=== PATIENT | female | born 1995 | race Caucasian/White ===

== ENCOUNTER 2023-11-12 20:28 | Emergency (ER) | payer BC, SELFPAY ==
[2023-11-12 20:44] VITALS: BP 151/84; PULSE 87; TEMP 36.8; O2SAT 99; BMI 27.4
--- NOTE | 2023-11-12 20:51 | XR_ITS ---
The [address] [address] Patient Name: OTY CHAIREZ MRN: [id number] date: 1995 Sex: F Assigned Patient Location: ER Current Patient Location: ER Accession/Order Number: [id number] Exam Date: 11/12/2023 21:35 Report Date: 11/12/2023 22:34 At the request of: VERÓNICA VELASCO Procedure: XR ankle LT min 3V XR ankle LT min 3V, 11/12/2023 9:35 PM EDT INDICATION: Twisted, pain COMPARISON: None. TECHNIQUE: 3 views of the left ankle FINDINGS: No acute fracture or dislocation. The ankle mortise is preserved. Soft tissue swelling seen about the ankle. No radiopaque foreign body. XR/XR ankle LT min 3V IMPRESSION: 1. No acute fracture or dislocation. Soft tissue swelling seen about the left ankle Electronically authenticated by: JEREMI BELL Date: 11/12/2023 22:34
--- NOTE | 2023-11-12 20:51 | XR_ITS ---
The [address] [address] Patient Name: TOY CHAIREZ MRN: [id number] date: 1995 Sex: F Assigned Patient Location: ER Current Patient Location: ED.MAIN Accession/Order Number: [id number] Exam Date: 11/12/2023 21:35 Report Date: 11/12/2023 22:27 At the request of: VERÓNICA VELASCO Procedure: XR foot LT min 3V EXAMINATION: XR foot LT min 3V, , 11/12/2023 9:35 PM EDT INDICATION: Twisted, pain HISTORY: Ordering Provider Reason for Exam: Twisted, pain Technologist Note: Additional: COMPARISON: None. TECHNIQUE: Left foot x-ray: 3 view(s). FINDINGS: No acute fracture. Joint alignment is anatomic. Joint spaces are preserved. Soft tissues are within normal limits. XR/XR foot LT min 3V IMPRESSION: No acute fracture or traumatic malalignment. Electronically authenticated by: JEREMI BELL Date: 11/12/2023 22:27
--- NOTE | 2023-11-12 20:52 | ED_ITS ---
HPI HPI - Extremity Injury (Lower) General Chief Complaint: Extremity Injury, Lower Stated Complaint: Lower Extremity Pain Time Seen by Provider: 11/12/23 20:45 Source: patient Mode of arrival: walk-in Limitations: no limitations History of Present Illness HPI Narrative: 28-year-old female presents to the emergency department for pain in her left foot and ankle area. She twisted it 3 days ago. It has been hurting and swollen since and she came in [facility] to get checked. It happened in [place] and she wanted to wait until she got home to have it looked at. No other injury was sustained and the pain is moderate. Related Data Home Medications ?Medication ?Instructions ?Recorded ?Confirmed No Known Home Medications 11/12/23 11/12/23 Allergies Allergy/AdvReac Type Severity Reaction Status Date / Time No Known Drug Allergies Allergy Verified 11/12/23 20:47 Opioid HPI Opioid Management Most Recent Pain and Opioid Data: No Data to Display Review of Systems ROS Narrative A ten point review of systems is negative except as noted above. Exam Narrative Exam Narrative: Nurses note and vital signs reviewed and patient is not hypoxic. General: The patient appears well and in no apparent distress. Skin: Warm, dry, no pallor noted. There is no rash noted. Head: Normocephalic, atraumatic Eye: Normal conjunctiva, no drainage Ears, Nose, Mouth, and Throat: oral mucosa is moist. Nares patent. Cardiovascular: Regular Rate and Rhythm Respiratory: Patient is in no distress, no accessory muscle use, lungs are clear to auscultation, no wheezing, rales or rhonchi Back: non-tender GI: Nontender Musculoskeletal: She has significant swelling in the left foot and ankle area. Skin intact. There is some bruising on the lateral aspect of her foot. Neurological: Awake and alert Psychiatric: Cooperative Constitutional Vital Signs, click to edit/add: Last Vital Signs Temp 98.3 F 11/12/23 20:44 Pulse 87 11/12/23 20:44 Resp 16 11/12/23 20:44 BP 151/84 H 11/12/23 20:44 Pulse Ox 99 11/12/23 20:44 O2 Del Method Room Air 11/12/23 20:44 Course Vital Signs Vital signs: Vital Signs Temperature 98.3 F 11/12/23 20:44 Pulse Rate 87 11/12/23 20:44 Respiratory Rate 16 11/12/23 20:44 Blood Pressure 151/84 H 11/12/23 20:44 Pulse Oximetry 99 11/12/23 20:44 Oxygen Delivery Method Room Air 11/12/23 20:44 Temperature 98.3 F 11/12/23 20:44 Pulse Rate 87 11/12/23 20:44 Respiratory Rate 16 11/12/23 20:44 Blood Pressure 151/84 H 11/12/23 20:44 Pulse Oximetry 99 11/12/23 20:44 Oxygen Delivery Method Room Air 11/12/23 20:44 MDM - Extremity Injury (Lower) MDM Narrative Medical decision making narrative: X-rays negative per radiologist. Deep wrap and air splint applied, application checked by me and found to be appropriate, she is neurovascular intact. She is placed on crutches and referred to Dr. Yung Saldana. Treatment diagnosis and follow-up were discussed with the patient. Differential Diagnosis Differential diagnosis: Likely ankle sprain and strain and ankle fracture Imaging Data Ankle x-ray: Radiologist's impression: ITS Impressions Ankle X-Ray 11/12/23 20:51 IMPRESSION: 1. No acute fracture or dislocation. Soft tissue swelling seen about the left ankle Electronically authenticated by: JEREMI BELL Date: 11/12/2023 22:34 Foot X-Ray 11/12/23 20:51 IMPRESSION: No acute fracture or traumatic malalignment. Electronically authenticated by: JEREMI BELL Date: 11/12/2023 22:27 Discharge Plan Discharge Stand Alone Forms: Portal Instructions Chief Complaint: Extremity Injury, Lower Clinical Impression: Left ankle sprain Patient Disposition: Home, Self-Care Time of Disposition Decision: 22:49 Condition: Good Mode of Transportation: Private Vehicle Prescriptions / Home Meds: No Action No Known Home Medications Print Language: Finnish Instructions: Ankle Sprain (ED), Crutch Instructions (ED), Ankle Stirrup Splint (ED) Additional Instructions: Follow-up with Dr. Palacios, call tomorrow Referrals: Efrain Muñoz DO [Primary Care Provider] - 1 week Roberto Palacios DPM [Physician] - 1 week
== END 2023-11-12 23:19 | disposition home or self-care (01) ==
PROVIDERS: Emergency Provider Emergency Medicine; PCP Internal Medicine
DX: S93.402A Sprain of unspecified ligament of left ankle, initial encounter (principal); X50.1XXA Overexertion from prolonged static or awkward postures, initial encounter
CPT/HCPCS: 73610; 73630; 99284

== ENCOUNTER 2023-11-13 12:46 | Emergency (ER) | payer BC, SELFPAY ==
[2023-11-13 12:51] VITALS: BP 122/85; PULSE 82; TEMP 36.8; O2SAT 98; BMI 27.2
--- NOTE | 2023-11-13 13:48 | US_ITS ---
The [place] [id number] Patient Name: TOY CHAIREZ MRN: [id number] date: 1995 Sex: F Assigned Patient Location: ER Current Patient Location: ER Accession/Order Number: [id number] Exam Date: 11/13/2023 13:50 Report Date: 11/13/2023 14:32 At the request of: MARINA CHEN Procedure: US venous doppler LE LT EXAM: US venous doppler LE LT HISTORY: leg swelling COMPARISON: None. TECHNIQUE: Grayscale, color and Doppler FINDINGS: Region: Left leg Thrombus: Echogenic thrombus identified in the small saphenous vein. No thrombus in the deep vein system Flow: Absent flow corresponding to thrombus Compressibility: Absent compressibility corresponding to thrombus Augmentation: Normal proximal augmentation US/US venous doppler LE LT IMPRESSION: No deep vein thrombus Occlusive thrombus in the superficial left small saphenous vein Electronically authenticated by: SERENITY BRENNER Date: 11/13/2023 14:32
--- NOTE | 2023-11-13 16:48 | ED_ITS ---
HPI HPI - General Adult General Chief complaint: Extremity Injury, Lower Stated complaint: LEFT ANKLE PAIN (SWELLING) COLDNESS Time Seen by Provider: 11/13/23 13:17 Source: patient Mode of arrival: walk-in History of Present Illness HPI narrative: 28-year-old female to the emergency department chief complaint of feeling a knot and some additional bruising in her leg. Recently diagnosed with an ankle sprain that was severe. She has follow-up with podiatry tomorrow. Today in the shower noted some increased bruising about the leg and a knot in her lower leg. She talked to a family member who is concerned about compartment syndrome. Related Data Home Medications ?Medication ?Instructions ?Recorded ?Confirmed drospirenone 3 mg-ethinyl 1 tab PO DAILY 11/13/23 11/13/23 estradiol 0.03 mg tablet escitalopram oxalate 20 mg tablet 20 mg PO DAILY 11/13/23 11/13/23 Allergies Allergy/AdvReac Type Severity Reaction Status Date / Time No Known Drug Allergies Allergy Verified 11/12/23 20:47 Opioid HPI Opioid Management Most Recent Opioid Data: Last Pain Scale 6 11/13/23 13:08 Review of Systems ROS Status of ROS 10 or more systems reviewed and unremark able except as noted in history and below Exam Narrative Exam Narrative: VITALS: I have reviewed the triage vital signs. GENERAL: Well developed, well appearing adult female in no acute distress. NEURO: Alert and oriented. Moves all extremities. Face is symmetric and expressive. EYES: PERRL. No scleral icterus or conjunctival injection. No discharge. HENT: Normocephalic, atraumatic. Hearing is grossly intact. Nares grossly patent and without discharge. Mucous membranes moist. NECK: No JVD. Patient moves neck without restriction. Left lower Extremity: DP and PT pulses intact. Limb is similar color and temperature to the contralateral limb. Compartments soft. No swelling. Ecchymosis about the ankle. Bilateral malleoli or tenderness. No tenderness at the base of the fifth metatarsal. No midfoot tenderness. No fibular head tenderness. Able to bear weight with arches maintained. Sensation is intact over the foot and lower leg. Dorsiflexion/plantar flexion, knee flexion/extension, hip flexion/extension are grossly intact by strength testing. SKIN: Warm and dry. Normal turgor. No rash or lesions appreciated. PSYCH: Mood, affect, and interaction is appropriate to the setting. Constitutional Vital Signs, click to edit/add: Last Vital Signs Temp 98.3 F 11/13/23 12:51 Pulse 82 11/13/23 12:51 Resp 18 11/13/23 12:51 BP 122/85 11/13/23 12:51 Pulse Ox 98 11/13/23 12:51 O2 Del Method Room Air 11/13/23 12:51 Course Vital Signs Vital signs: Vital Signs Temperature 98.3 F 11/13/23 12:51 Pulse Rate 82 11/13/23 12:51 Respiratory Rate 18 11/13/23 12:51 Blood Pressure 122/85 11/13/23 12:51 Pulse Oximetry 98 11/13/23 12:51 Oxygen Delivery Method Room Air 11/13/23 12:51 Temperature 98.3 F 11/13/23 12:51 Pulse Rate 82 11/13/23 12:51 Respiratory Rate 18 11/13/23 12:51 Blood Pressure 122/85 11/13/23 12:51 Pulse Oximetry 98 11/13/23 12:51 Oxygen Delivery Method Room Air 11/13/23 12:51 Medical Decision Making MDM Narrative Medical decision making narrative: 28-year-old female to the emergency department chief complaint of increased bruising, pain and a palpable knot in her calf. Vital stable, the patient is afebrile. Left lower extremity is neurovascularly intact. No evidence of compartment syndrome. Will order a duplex to evaluate for DVT given the painful knot. No DVT. Does have a superficial vein thrombosis of the small saphenous vein. Did discuss with the on-call vascular surgeon Dr. Reyes who will see the patient in office in a week for repeat evaluation. Does not recommend anticoagulation at this time. Discussed Deep wrap, warm compresses, NSAIDs. Follow-up with podiatry as scheduled for the ankle. Return precautions were discussed. All questions were answered. The patient was discharged home. Imaging Data Ultrasound duplex: Attestation: I have reviewed the pertinent imaging results. Radiologist's impression: ITS Impressions Venous Doppler Study 11/13/23 13:48 IMPRESSION: No deep vein thrombus Occlusive thrombus in the superficial left small saphenous vein Electronically authenticated by: SERENITY BRENNER Date: 11/13/2023 14:32 Discharge Plan Discharge Stand Alone Forms: Portal Instructions Chief Complaint: Extremity Injury, Lower Clinical Impression: Superficial vein thrombosis Patient Disposition: Home, Self-Care Time of Disposition Decision: 15:36 Condition: Good Prescriptions / Home Meds: No Action drospirenone-ethinyl estradiol 3-0.03 mg tablet 1 tab PO DAILY escitalopram oxalate 20 mg tablet 20 mg PO DAILY Print Language: [place]ese Instructions: Venous Thromboembolism (ED) Additional Instructions: Return to the emergency department increasing pain, increasing swelling, or other new or concerning symptoms Referrals: Efrain Muñoz DO [Primary Care Provider] - 1 week Unique Reyes MD [Physician] - 1 week Discharge Date/Time: 11/13/23 15:41
== END 2023-11-13 15:41 | disposition home or self-care (01) ==
PROVIDERS: Emergency Provider Student in an Organized Health Care Education/Training Program; PCP Internal Medicine
DX: I82.812 Embolism and thrombosis of superficial veins of left lower extremity (principal)
CPT/HCPCS: 93971; 99284

== ENCOUNTER 2023-11-14 08:00 | Outpatient (OUT) | payer BC, SELFPAY ==
--- NOTE | 2023-11-14 | XR_ITS ---
The [address] [address] Patient Name: TOY CHAIREZ MRN: [id number] date: 1995 Sex: F Assigned Patient Location: Current Patient Location: Accession/Order Number: [id number] Exam Date: 11/14/2023 09:50 Report Date: 11/14/2023 14:54 At the request of: MADHU LONGO Procedure: XR ankle LT min 3V PROCEDURE: XR ankle LT min 3V COMPARISON: 11/12/2023 HISTORY: LEFT ANKLE PAIN FINDINGS: BONES:No fracture, acute abnormality, or significant arthropathy. SOFT TISSUES:Moderate diffuse soft tissue swelling EFFUSION:Small ankle joint effusion OTHER: Negative. XR/XR ankle LT min 3V IMPRESSION: Soft tissue swelling, no acute fracture Electronically authenticated by: SERENITY BRENNER Date: 11/14/2023 14:54
== END 2023-11-14 08:01 | disposition home or self-care (01) ==
LOC: EC 08:01
PROVIDERS: PCP Internal Medicine; Visit Provider Podiatrist Foot & Ankle Surgery
DX: M25.572 Pain in left ankle and joints of left foot (principal); M25.472 Effusion, left ankle
CPT/HCPCS: 73610

== ENCOUNTER 2025-01-03 21:16 | Emergency (ER) | payer OTHER, SELFPAY ==
[2025-01-03 21:22] VITALS: BP 122/75; PULSE 89; TEMP 36.6; O2SAT 100; BMI 29.7
--- OUTSIDE RECORDS SUMMARY | 2025-01-03 21:24 | XMS_ITS | CCD ---
Author Organization [facility] Care Team Providers Care Rubber Tester Name Role Phone MIKAYLA SCALES Attending Unavailable SELF, SELF Referring Unavailable MIKAYLA SCALES Referring Unavailable No, Physician Primary Care Provider Unavailabl e NO, PHYSICIAN Primary Care Unavailable XIAO TRAN Attending Unavailabl e LUNA PETERSON Attending Unavailab le NO, PHYSICIAN Primary Care Unavailable Magen Mao MD Primary Care Provider CAYLA TUBBS Admitting Unava ilable NO, PHYSICIAN Primary Care Unavailable No, Physician Primary Care Provider Unavailabl e NO, PHYSICIAN Primary Care Unavailable AMBAR JACOBO Attending Unavailable NO, PHYSICIAN Primary Care Unavailable QUENTIN CAMP Attending Unavail able CAYLA TUBBS Admitting Unava ilable CAYLA TUBBS Attending Unava ilable NO, PHYSICIAN Primary Care Unavailable CAYLA TUBBS Admitting Unava ilable BIRJANEEHOLCAYLA Lebron Attending Unava ilable NO, PHYSICIAN Primary Care Unavailable CAYLA TUBBS Admitting Unava ilable NO, PHYSICIAN Primary Care Unavailable MARCE DUTTA Attending Unavailable Cayla Tubbs DO Primary Care Provider CAYLA TUBBS Referring Unavailab CAYLA Renteria Primary Care Unavailab CAYLA Renteria Referring Unavailab le CAYLA TUBBS Primary Care Unavailab SUDHIR Reagan Referring Unavailable CAYLA TUBBS Primary Care Unavailab SILVIA Mccauley Attending Unavailable Unavailable Primary Care Provider UnavailEfrain Padilla DO Primary Care Provider Efrain Muñoz DO Primary Care Provider [phone] Patricia Segura PA-C Attending Provider [phone] Fernie Rizzo DO Attending Provider [phone] PATRICIA SEGURA Attending Unavailable FERNIE RIZZO Attending Unavailable Patricia Segura Attending Unavailable Patricia Segura Admitting Unavailable [facility] Unavailable [facility] Unavailable Itrhina, Fernie Attending Unavailable Itzjude, Fernie Admitting Unavailable [facility] Unavailable Itzjude, Fernie Attending Unavailable Itrhina, Fernie Admitting Unavailable Allergies Allergy Classification Reported Allergen(s) Allergy Type Date of Onset Reaction(s) Facility (2 sources) Latex Propensity to adverse reactions 5 Itching, Rash [facility] Work Phone: Medications Current Medications Medication Drug Class(es) Dates Sig (Normalized) Sig (Original) amoxicillin 875 mg oral tablet (1 source) Penicillin-class Antibacterial Start: 02-20-2024 take 1 tablet by mouth twice daily azithromycin 250 mg oral tablet (2 sources) Macrolide Antimicrobial Start: 11-30-2020 azithromycin (Zithromax) 250 MG tablet Indications: Bronchitis Take 2 tablets (500 mg) on Day 1, followed by 1 tablet (250 mg) once daily on Days 2 through 5. . 6 tablet 0 11/30/2020 Active benzonatate 100 mg oral capsule (2 sources) Non-narcotic Antitussive Start: 11-30-2020 End: 12-10-2020 take 1 capsule by mouth every six hours as needed for cough benzonatate (Tessalon Perles) 100 MG capsule Indications: Bronchitis Take 1 (one) capsule (100 mg total) by mouth every 6 (six) hours as needed for cough (cough) . 30 capsule 1 11/30/2020 12/10/2020 Active cephalexin 500 mg oral capsule (2 sources) Cephalosporin Antibacterial Start: 10-22-2024 End: 10-29-2024 take 1 capsule by mouth in the morning, then take 1 capsule by mouth in the evening, then take 1 capsule by mouth at bedtime cephalexin (Keflex) 500 MG capsule Indications: Breast lump on right side at 6 o'clock position , Breast lump on left side at 6 o'clock position Take 1 capsule (500 mg) by mouth in the morning and 1 capsule (500 mg) in the evening and 1 capsule (500 mg) before bedtime. Do all this for 7 days. 21 capsule 10/22/2024 10/29/2024 Active Drospirenone-Ethiny l Estradiol (6 sources) Progestin, Estrogen Start: 02-20-2024 Start: 02-20-2024 Drospirenone-E thinyl Estradiol (Veronica (28)) 3-0.03 mg tablet Active 1 TAB PO Daily February 20, 2024 12:00am drospirenone-eth inyl estradiol (Yovana, Gianvi) 3-0.02 MG tablet Take 1 tablet by mouth Daily Active escitalopram 20 mg oral tablet (6 sources) Serotonin Reuptake Inhibitor Start: 02-20-2024 take 1 tablet by mouth once daily escitalopram (Lexapro) 20 MG tablet Take 20 mg by mouth Daily 09/04/2024 Active take 1 tablet by mouth in the mo rning escitalopram (LEXAPRO) 10 mg tablet Take 1 tablet (10 mg total) by mouth in the morning. Active FLUoxetine 20 mg oral capsule (2 sources) Serotonin Reuptake Inhibitor Start: 07-09-2021 take 1 capsule by mouth once daily FLUoxetine (PROzac) 20 mg capsule TAKE 1 CAPSULE BY MOUTH EVERY DAY 90 capsule 1 07/09/2021 Active 12 hr loratadine 5 mg / pseudoephedrine sulfate 120 mg extended release oral tablet (2 sources) alpha-Adrenergic Agonist Start: 11-30-2020 End: 12-10-2020 take 1 tablet by mouth twice daily loratadine-pseudoePHE Drine (Claritin-D 12 Hour) 5-120 mg Tb12 Indications: YOAMIRA (secretory otitis media), right Take 1 (one) tablet by mouth 2 (two) times a day for 10 days . 20 tablet 2 11/30/2020 12/10/2020 Active methylPREDNISolone (2 sources) Corticosteroid Start: 11-30-2020 methylPREDNISolone (MEDROL DOSEPACK) 4 mg tablet Indications: YOMAIRA (secretory otitis media), right follow package directions . 21 tablet 0 11/30/2020 Active oxyCODONE hydrochloride 5 mg oral tablet (3 sources) Opioid Agonist Start: 01-23-2022 End: 01-26-2022 take 1 tablet by mouth every six hours as needed for pain oxyCODONE (ROXICODONE) 5 MG immediate release tablet Indications: Postoperative pain Take 1 (one) tablet (5 mg total) by mouth every 6 (six) hours as needed for pain . 5 tablet 0 01/23/2022 01/26/2022 Active Start: 01-21-2022 End: 01-23-2022 take 5-10 mg by mouth every four hours as needed 5-10 mg, Oral, Every 4 hours PRN, moderate to severe pain, Starting on Mon01/21/22 at 1817, [] Initiate with 5 mg oral every 4 hours prn moderate to severe pain. [] For unrelieved pain, may repeat 5 mg oral dose within 60 minutes of initial dose. [] If pain is RELIEVED after repeat dose, change to 10 mg oral every 4 hours prn moderate to severe pain. [] If pain is UNrelieved after repeat dose, or patient requires dose reduction, call physician. Completed/Discontinued Medications Medication Drug Class(es) Dates Sig (Normalized) Sig (Original) acetaminophen 325 mg oral tablet (1 source) Start: 01-21-2022 End: 01-23-2022 take 1 tablet by mouth every four hours as needed for pain 650 mg, Oral, Every 4 hours PRN, mild pain, Starting on Mon01/21/22 at 1817, aluminum hydroxide 40 mg/ml / magnesium hydroxide 40 mg/ml / simethicone 4 mg/ml oral suspension (1 source) Start: 01-21-2022 End: 01-23-2022 take 30 mL by mouth every four hours as needed 30 mL, Oral, Every 4 hours PRN, indigestion, Starting on Mon01/21/22 at 1817, bisacodyl 10 mg rectal suppository (1 source) Stimulant Laxative Start: 01-21-2022 End: 01-23-2022 10 mg, Rectal, Daily PRN, constipation, Starting on Mon01/21/22 at 1817, Use oral medication first for constipation.&nbsp ; Use rectal suppository, if ordered, for constipation if oral route not tolerated. calcium chloride 0.0014 meq/ml / potassium chloride 0.004 meq/ml / sodium chloride 0.103 meq/ml / sodium lactate 0.028 meq/ml injectable solution (4 sources) Start: 01-21-2022 End: 01-23-2022 take 125 mL intravenously every hour 125 mL/hr, Intravenous, Continuous, Starting on Mon01/21/22 at 1915, L&D Post-Delivery Start when oxyTOCIN (PITOCIN) drip is discontinued. Discontinue after 24 hours if patient is afebrile and tolerating orals. Start: 01-21-2022 End: 01-23-2022 lactated Ringers infusion Start: 01-21-2022 End: 01-21-2022 lactated Ringers infusion - ADS Override Pull ceFAZolin 2000 mg injection (1 source) Cephalosporin Antibacterial Start: 01-21-2022 End: 01-21-2022 ceFAZolin (ANCEF) IVPB 2 g (premix) citric acid 66.8 mg/ml / sodium citrate 100 mg/ml oral solution (1 source) Calculi Dissolution Agent, Anti-coagulant Start: 01-21-2022 End: 01-21-2022 citric acid-sodium citrate (BICITRA) solution 30 mL Start: 01-21-2022 End: 01-21-2022 citric acid-sodium citrate ( BICITRA) solution 30 mL diphenhydrAMINE (1 source) Histamine-1 Receptor Antagonist Start: 01-21-2022 End: 01-23-2022 take 1 tablet by mouth every six hours as needed diphenhydrAMINE (BENADRYL) tablet 25 mg docusate sodium 100 mg oral capsule (1 source) Start: 01-21-2022 End: 01-23-2022 100 mg, Oral, 2 times daily, First dose on Mon01/21/22 at 2100, Use oral medication first for constipation.&nbsp ; Use rectal suppository, if ordered, for constipation if oral route not tolerated. DO NOT CRUSH OR CHEW. 0.5 ml HYDROmorphone hydrochloride 1 mg/ml prefilled syringe (1 source) Opioid Agonist Start: 01-21-2022 End: 01-23-2022 take 0.5 mg intravenously every twenty-four hours as needed 0.5 mg, Intravenous, Once as needed, Pain Associated with Hemorrhage Management., Starting on Mon01/21/22 at 1817, For 1 dose, ibuprofen 600 mg oral tablet (1 source) Nonsteroidal Anti-inflammatory Drug Start: 01-22-2022 End: 01-23-2022 take 1 tablet by mouth every six hours as needed for headache ibuprofen (ADVIL,MOTRIN) tablet 600 mg 1 ml ketorolac tromethamine 30 mg/ml injection (1 source) Nonsteroidal Anti-inflammatory Drug, Cyclooxygenase Inhibitor Start: 01-21-2022 End: 01-22-2022 take 30 mg intravenously every six hours 30 mg, Intravenous, Every 6 hours, First dose on Mon01/21/22 at 2100, For 2 doses, Sign and Release Start 6 hours after dose given in OR. Give every 6 hours x 2 doses post-procedure. naloxone (NARCAN) injection 0.1 mg (1 source) Start: 01-21-2022 End: 01-23-2022 naloxone (NARCAN) injection 0.1 mg ondansetron 4 mg disintegrating oral tablet (1 source) Serotonin-3 Receptor Antagonist Start: 01-21-2022 End: 01-21-2022 ondansetron (ZOFRAN-ODT) disintegrating tablet 4 mg Start: 01-21-2022 End: 01-21-2022 ondansetron (ZOFRAN-ODT) dis integrating tablet 4 mg ondansetron (ZOFRAN-ODT) disintegrating tablet 4 mg (1 source) Start: 01-21-2022 End: 01-23-2022 take 1 tablet by mouth every six hours as needed for nausea and vomiting ondansetron (ZOFRAN-ODT) disintegrating tablet 4 mg oxytocin in lactated ringers (PITOCIN) 20 unit/1,000 mL infusion (2 sources) Start: 01-21-2022 End: 01-22-2022 Intravenous, at 124.8 mL/hr, Continuous, Starting on Mon01/21/22 at 1915, For 24 hours, L&D Post-Delivery Discontinue infusion after 3.5 hours AND when bleeding scant and fundus firm. Th en begin LR infusion at 125 ml/hr CATEGORY B HAZARDOUS DRUG use safe handling precautions. Use reference link to view PPE guidelines. Safe handling precautions only required when in the third trimester. EMERGEN CY Haz Drug use professional judgement when deviating from standard handling precautions. Initial Rate (darshana-units/min): 41.6 darshana-units/min Start: 01-21-2022 End: 01-21-2022 oxytocin in lactated ringers (PITOCIN) 20 unit/1,000 mL infusion vitamin with Ca-Iron-FA 27-1 mg Tab (1 source) End: 01-23-2022 take 1 tablet by mouth once daily vitamin with Ca-Iron-FA 27-1 mg Tab Take 1 tablet by mouth daily . 0 01/23/2022 Discontinued (Stop Taking at Discharge) rho(d) immune globulin (RHOPHYLAC) injection 300 mcg (1 source) Start: 01-21-2022 End: 01-23-2022 inject 300 ug by intramuscular injection every twenty-four hours as needed rho(d) immune globulin (RHOPHYLAC) injection 300 mcg simethicone 80 mg chewable tablet (1 source) Start: 01-21-2022 End: 01-23-2022 take 80 mg by mouth after mealtime as needed 80 mg, Oral, After meals as needed, flatulence, Starting on Mon01/21/22 at 1817, 1000 ml sodium chloride 9 mg/ml injection (1 source) Start: 01-21-2022 End: 01-23-2022 0-150 mL/hr, Intravenous, As needed, To flush line after IV infusions when no maintenance IV ordered or a compatibility issue. Infuse 20mL at the same rate as the secondary infusion, Starting on Mon01/21/22 at 1817, L&D Post-Delivery Run as Primary IV. NOT intended for KVO. Problems Active Problems Problem Classification Problem Date Documented Date Episodic/Chronic Abdominal pain (4 sources) Pelvic and perineal pain; Translations: [Left lower quadrant pain] Onset: 06-20-2022 Episodic Chronic obstructive pulmonary disease and bronchiectasis (2 sources) Bronchitis; Translations: [Bronchitis, not specified as acute or chronic] Episodic Lymphadenitis (1 source) Cervical lymphadenopathy; Translations: [Localized enlarged lymph nodes] 02-20-2024 Episodic Nonmalignant breast conditions (20 sources) Lump in right breast; Translations: [Unspecified lump in the right breast, unspecified quadrant] Onset: 10-25-2022 Episodic Other and unspecified benign neoplasm (4 sources) Benign neoplasm of right breast; Translations: [Benign neoplasm of breast] Onset: 11-06-2024 11-06-2024 Episodic Other female genital disorders (3 sources) Other specified abnormal uterine and vaginal bleeding; Translations: [Other specified abnormal uterine and vaginal bleeding] Onset: 06-20-2022 Chronic Other female genital disorders (1 source) Abnormal uterine bleeding; Translations: [Other specified abnormal uterine and vaginal bleeding] 2024 Chronic Other nervous system disorders (1 source) Postoperative pain ; Translations: [Other acute postprocedural pain] Episodic Other upper respiratory infections (1 source) Acute pharyngitis; Translations: [Acute pharyngitis, unspecified] 02-20-2024 Episodic Otitis media and related conditions (2 sources) Otitis media; Translations: [Unspecified nonsuppurative otitis media, right ear] Episodic Unclassified (2 sources) Contractions Onset: 01-12-2022 Unclassified (1 source) Abnormal Bleeding Onset: 01-15-2024 Unclassified (1 source) Unspecified lump in the left breast, overlapping quadrants; Translations: [Unspecified lump in the left breast, overlapping quadrants] Onset: 10-28-2024 Past or Other Problems Problem Classification Problem Date Documented Date Episodic/Chronic Hemorrhage during ; abruptio placenta; placenta previa (2 sources) Other antepartum hemorrhage, first trimester; Translations: [Other antepartum hemorrhage, first trimester] Onset: 07-12-2021 Episodic Malaise and fatigue (2 sources) Other fatigue; Translations: [Other fatigue] Onset: 07-12-2021 Episodic Nonspecific chest pain (2 sources) Chest pain, unspecified; Translations: [Chest pain, unspecified] Onset: 07-12-2021 Episodic Other lower respiratory disease (2 sources) Dyspnea, unspecified; Translations: [Dyspnea, unspecified] Onset: 07-12-2021 Episodic Other nervous system disorders (2 sources) Other acute postprocedural pain; Translations: [Other acute postprocedural pain] Onset: 01-21-2022 Episodic Other and delivery including normal (4 sources) care status; Translations: [Encounter for routine follow-up] Onset: 01-21-2022 Episodic Polyhydramnios and other problems of amniotic cavity (2 sources) Other specified disorders of amniotic fluid and membranes, first trimester, not applicable or unspecified; Translations: [Other specified disorders of amniotic fluid and membranes, first trimester, not applicable or unspecified] Onset: 07-12-2021 Episodic Residual codes; unclassified (2 sources) History of uterine scar from previous surgery; Translations: [History of uterine scar from previous surgery] Onset: 01-21-2022 Episodic Residual codes; unclassified (2 sources) 9 weeks gestation of ; Translations: [9 weeks gestation of ] Onset: 07-12-2021 Episodic Results Test Name Value Interpretation Reference Range Facility K[facility]ik 10-30-2024 L Specimen: [id number] Received: 10/30/24 Status: DASIA Wagner Num: [id number] Spec Type: Surgical Subm Dr: Telly Perez Jr, DO Tissues: A BREAST CORE NO CALCS (RIGHT BREAST) B BREAST CORE NO CALCS (LEFT BREAST) Procedures: DOMENICA/Alex, Gross/Micro L4/2 Age/ Patient Sex Location Account Attending Physician Angélica Peguero / CARLOS [id number] Fernie Rizzo DO SPEC NUM: [id number] RECD: 10/30/24 STATUS: DASIA WAGNER NUM: [id number] GORGE: 10/30/[address] [facility] [address]: Telly Perez Jr, ENTERED: 10/30/24 [facility] DR: Fernie Rizzo DO SPEC TYPE: Surgical DEPT: S ENTERED BY: [id number] RECV BY: [id number] ORDERED: HE/8, Gross/Micro L4/2 ORDERED: HE/8, Gross/Micro L4/2 Pathological Diagnosis A. Breast, right, mass at 6:00, 1-2 cmfn (image guided needle biopsies): Fibroadenoma, fragmented with mild ductal epithelial hyperplasia No cytologic atypia or malignancy seen B. Breast, left, mass at 6:00,1 cmfn (image guided needle biopsies): Fibroadenoma, fragmented Fibrocystic changes No cytologic atypia or malignancy seen Clinical Information Part A right breast hypoechoic mass at 6:00, 1-2 cm from nipple, Part B left breast hypoechoic mass 6:00, 1 cm from nipple Gross Description Part A is received in formalin labeled with the patients name, date of , and right breast are 8 pale roth to yellow gonzalez, delicate needle core biopsy segments, 0.5-1.9 cm in length. The cores are entirely submitted in Cassette A1?A2. Fixation time: Time tissue removed from patient: 1318 Time specimen placed in formalin: 1320 Cold ischemic time: 2 minutes Specimen: [id number] Received: 10/30/24 Status: DASIA Wagner Num: [id number] Spec Type: Surgical Subm Dr: Telly Perez Jr, Tissues: A BREAST CORE NO CALCS (RIGHT BREAST) B BREAST CORE NO CALCS (LEFT BREAST) Procedures: , Opal/Ray L4/2 Patient: MarielenaAngélica [id number] (Continued) Specimen: [id number] Received: 10/30/24 (Continued) Gross Description (Continued) Signed (signature on file) Juan Faust Jr., MD 11/02/24 1736 Specimen: [id number] Received: 10/30/24 Status: DASIA Wagner Num: [id number] Spec Type: Surgical Subm Dr: Telly Perez Jr, DO Tissues: A BREAST CORE NO CALCS (RIGHT BREAST) B BREAST CORE NO CALCS (LEFT BREAST) Procedures: HE/Alex, Gross/Micro L4/2 Patient: Angélica Peguero [id number] (Continued) Specimen: Received: 10/30/24 (Continued) Gross Description (Continued) Total fixation time: 28 hours and 30 minutes (2, janeen, A) Part B is received in formalin labeled with the patients name, date of , and left breast are 5 pale godoy to yellow-gonzalez, delicate needle core biopsy segments, 0.7 to 2.1 cm in length with detached fragments of fibrofatty tissue, 1 x 0.7 x 0.2 cm in aggregate. The cores are entirely submitted in Cassette B1 with the remainder of the specimen filtered, and entirely submitted in Cassette B2. Fixation Time: Time specimen extracted: 1331 Time specimen placed in formalin: 1334 Cold ischemic time: 3 minutes Total fixation time: 28 hours (2, janeen, B) CPT Codes 80836 x 2 Specimen: [id number] Received: 10/30/24 Status: DASIA Deandre Num: [id number] Spec Type: Surgical Subm Dr: Telly Perez Jr, DO Tissues: A BREAST CORE NO CALCS (RIGHT BREAST) B BREAST CORE NO CALCS (LEFT BREAST) Procedures: Opal COHEN/Ray L4/2 Patient: Angélica Peguero [id number] (Continued) Signed (signature on file) Juan Faust Jr., 0 (more content not included)... Normal [facility] Physician [facility] Mammography reportOrdered By : Telly Perez on 10-30-2024 Diagnostic imaging study [facility] [address] [place] [address] Mammography Report Signed Patient: Angélica Peguero MR#: [id number] : 1995 Acct:[id number] Age/Sex: 29 / F Adm Date: 5 Loc: [facility] Room: Type: [facility] Attending Dr: Fernie Rizzo DO Ordering Provider: Fernie Rizzo DO Date of Service: 10/30/24 Procedure(s): MM post biopsy BI w/CAD; US biopsy LT 1st lesion guid; US biopsy RT 1st lesion guid Accession Number(s): ([id number]) US/US biopsy LT 1st lesion guid: ABN MAMM ([id number]) US/US biopsy RT 1st lesion guid: . ([id number]) MM/MM post biopsy BI w/CAD: CLIP PLACEMENT Copies to: DO Fernie Ortega DO~ ULTRASOUND GUIDED VACUUM-ASSISTED HOLOGIC ATEC SYSTEM CORE BIOPSIES OF THE RIGHTBREAST: CLINICAL DATA: Mass 6:00 position right breast PROCEDURE: The risks, benefits and alternatives to an ultrasound guided vacuum-assisted Hologic ATEC system core biopsy procedure were discussed with the patient and written informed consent was obtained. Ultrasonographic survey of the 6:00 position of the right breast was performed by electro mechanical technologist . The patient's overlying skin was anesthetized with 1% lidocaine. The deeper softtissues up to and around the mass were anesthetized with lidocaine mixed with epinephrine. Following this, multiple core biopsies of the right breast mass were performed using a 12-gauge [employer] vacuum-assisted core biopsy needle under ultrasound guidance. Multiple core biopsy specimens were obtained. A metallic post biopsy marker was then placed. Post procedure mammograms were performed. The patient tolerated the procedure well without immediate postprocedural complication. POSTPROCEDURE MAMMOGRAMS: Craniocaudal and true lateral views of the right breast were performed using low dose digital technique. The postbiopsy marker is seen at the biopsy site without evidence of migration. MM/MM post biopsy BI w/CAD IMPRESSION: STATUS POST ULTRASOUND GUIDED VACUUM-ASSISTED CORE BIOPSIES OF THE RIGHT BREAST. RESULT CODE: NL ULTRASOUND GUIDED VACUUM-ASSISTED HOLOGIC ATEC SYSTEM CORE BIOPSIES OF THE LEFT BREAST: CLINICAL DATA: Mass 5 to 6:00 position of the left breast. PROCEDURE: The risks, benefits and alternatives to an ultrasound guided vacuum-assisted Hologic ATEC system core biopsy procedure were discussed with the patient and written informed consent was obtained. Ultrasonographic survey of the 5/6:00 position of the left breast was performed by electro mechanical technologist . The patient's overlying skin was anesthetized with 1% lidocaine. The deeper softtissues up to and around the mass were anesthetized with lidocaine mixed with epinephrine. Following this, multiple core biopsies of the left breast mass wereperformed using a 12-gauge [employer] vacuum-assisted core biopsy needle under ultrasound guidance. Multiple core biopsy specimens were obtained. A metallic post biopsy marker was then placed. Post procedure mammograms were performed. The patient tolerated the procedure well without immediate postprocedural complication. POSTPROCEDURE MAMMOGRAMS: Craniocaudal and true lateral views of the left breastwere performed using low dose digital technique. The postbiopsy marker is seen at the biopsy site without evidence of migration. IMPRESSION: STATUS POST ULTRASOUND GUIDED VACUUM-ASSISTED CORE BIOPSIES OF THE LEFT BREAST. RESULT CODE: NL Impression dictated by: Shiela Cazares Jr.OJuliann 10/30/2024 1:56 PM Dictation Location: [facility] Dictated By: Telly Perez Jr, DO 10/30/24 1348 Signed By: 10/30/24 1356 [facility] US biopsy RT 1st lesion guid on 10-30-2024 US biopsy RT 1st lesion guid [facility] [address] [place] [address] Mammography Report Signed with Piedad Patient: Angélica Peguero MR#: [id number] : 1995 Acct:[id number] Age/Sex: 29 / F Adm Date: 10/30/24 Loc: [facility] Room: Type: [facility] Attending Dr: Fernie Rizzo DO Ordering Provider: Fernie Rizzo DO Date of Service: 10/30/24 Procedure(s): MM post biopsy BI w/CAD; US biopsy LT 1st lesion guid; US biopsy RT 1st lesion guid Accession Number(s): ([id number]) US/US biopsy LT 1st lesion guid: ABN MAMM ([id number]) US/US biopsy RT 1st lesion guid: . ([id number]) MM/MM post biopsy BI w/CAD: CLIP PLACEMENT Copies to: DO Fernie Ortega DO ADDENDUM 1 Addendum for pathology: Ultrasound-guided biopsy right breast mass at 6:00 position: Fibroadenoma. No atypia or malignancy seen. Ultrasound guided biopsy left breast mass 6:00 position: Fibroadenoma. No atypia or malignancy seen. Findings are benign and concordant with imaging. Annual screening mammography at age 40 unless otherwise clinically indicated is recommended. Impression dictated by: Telly Perez Jr., D.OJuliann 11/04/2024 10:40 AM Dictation Location: [place] [address] Addendum Dictated By: Telly Perez Jr, DO Addendum Signed By: 11/04/241039 Addendum Cosigned By: DD/ TD/TT: 11/04/24 ULTRASOUND GUIDED VACUUM-ASSISTED HOLOGIC ATEC SYSTEM CORE BIOPSIES OF THE RIGHT BREAST: CLINICAL DATA: Mass 6:00 position right breast PROCEDURE: The risks, benefits and alternatives to an ultrasound guided vacuum-assisted Hologic ATEC system core biopsy procedure were discussed with the patient and written informed consent was obtained. Ultrasonographic survey of the 6:00 position of the right breast was performed by electro mechanical technologist . The patient's overlying skin was anesthetized with 1% lidocaine. The deeper soft tissues up to and around the mass were anesthetized with lidocaine mixed with epinephrine. Following this, multiple core biopsies of the right breast mass were performed using a 12-gauge [employer] vacuum-assisted core biopsy needle under ultrasound guidance. Multiple core biopsy specimens were obtained. A metallic post biopsy marker was then placed. Post procedure mammograms were performed. The patient tolerated the procedure well without immediate postprocedural complication. POSTPROCEDURE MAMMOGRAMS: Craniocaudal and true lateral views of the right breast were performed using low dose digital technique. The postbiopsy marker is seen at the biopsy site without evidence of migration. MM/MM post biopsy BI w/CAD IMPRESSION: STATUS POST ULTRASOUND GUIDED VACUUM-ASSISTED CORE BIOPSIES OF THE RIGHT BREAST. RESULT CODE: NL ULTRASOUND GUIDED VACUUM-ASSISTED HOLOGIC ATEC SYSTEM CORE BIOPSIES OF THE LEFT BREAST: CLINICAL DATA: Mass 5 to 6:00 position of the left breast. PROCEDURE: The risks, benefits and alternatives to an ultrasound guided vacuum-assisted Hologic ATEC system core biopsy procedure were discussed with the patient and written informed consent was obtained. Ultrasonographic survey of the 5/6:00 position of the left breast was performed by electro mechanical technologist . The patient's overlying skin was anesthetized with 1% lidocaine. The deeper soft tissues up to and around the mass were anesthetized with lidocaine mixed with epinephrine. Following this, multiple core biopsies of the left breast mass were performed using a 12-gauge [employer] vacuum-assisted core biopsy needle under ultrasound guidance. Multiple core biopsy specimens were obtained. A metallic post biopsy marker was then placed. Post procedure mammograms were performed. The patient tolerated the procedure well without immediate postprocedural complication. POSTPROCEDURE MAMMOGRAMS: Craniocaudal and true lateral views of the left breast were performed using low dose digital technique. The postbiopsy marker is seen at the biopsy site without evidence of migration. IMPRESSION: STATUS POST ULTRASOUND GUIDED VACUUM-ASSISTED CORE BIOPSIES OF THE LEFT BREAST. RESULT CODE: NL Impression dictated by: Telly Perez Jr., D.O. 10/30/2024 1:56 PM Dictation Location: [facility] Dictated By: Telly Perez Jr, DO 10/30/24 1348 Signed By: 10/30/24 1356 [place] [facility] MM diagnostic mammo BI w/CAD on 10-28-2024 MM diagnostic mammo BI w/CAD [facility] [place] [address] Ultrasound Report Signed Patient: Angélica Peguero MR#: [id number] 3 : 1995 Acct:[id number] Age/Sex: 29 / F ADM Date: 10/28/24 Loc: [place] Room: Type: [facility] Attending Dr: Patricia Segura PA-C Ordering Provider: Patricia LUNA Date of Service: 10/28/24 MM/MM diagnostic mammo BI w/CAD: N63.15 ([id number]) US/US breast BI limited: Copies to: Patricia LUNA CLINICAL DATA: Palpable lumps both breasts Bilateral DIAGNOSTIC MAMMOGRAM - WITH TOMOSYNTHESIS AND CAD , bilateralLIMITED BREAST ULTRASOUND COMPARISON:Baseline study Tomosynthesis imaging was obtained using low-dose digital technique. This examination was reviewed with the aid of CAD. Additional ultrasound imaging was also obtained. Mammogram: The breasts are composed of heterogeneously dense fibroglandular tissue. In the areas of palpable lumps involving both breasts, masses are noted. No evidence of architectural distortion or suspicious microcalcifications. Ultrasound: At the 5 to 6:00 position of the left breast approximately 1 cm from the nipple, a well- circumscribed hypoechoic mass is noted measuring 15 x 12 x 10 mm. Additional scanning of the axilla demonstrated no suspicious lymph nodes. At the 6:00 position of the right breast approximately 2 cm from the nipple, a well-circumscribed hypoechoic mass is present measuring 24 x 22 x 18 mm. Additional scanning of the axilla demonstrated no suspicious lymph nodes. US/US breast BI limited IMPRESSION: HYPOECHOIC MASSES INVOLVING BOTH BREASTS LIKELY FIBROADENOMAS. AFTER DISCUSSION WITH THE PATIENT REGARDING THE IMAGING FINDINGS AND FOLLOW-UP OPTIONS, THE PATIENT ELECTED BIOPSY., RESULT CODE: 4a Suspicious Abnormality - Biopsy Low Suspicion DENSITY CODE: 3 (approximately 51-75% glandular) The breasts are heterogeneously dense, which may obscure small masses. FOLLOW UP: BIO The false-negative rate of mammography is approximately 10-percent. Management of a palpable abnormality must be based on clinical grounds. Impression dictated by: Telly Perez Jr., D.O. 10/28/2024 10:35 AM Dictation Location: [facility] Tech: Cristal Smiley Transcribed By: GAYLA 10/28/24 1035 Dictated By: Telly Perez Jr, DO 10/28/24 1033 Signed By: 10/28/24 1035 Normal [facility] US BREAST LIMITED RIGHTon US BREAST LIMITED RIGHT EXAMINATION TYPE: US BREAST LIMITED RIGHT DATE OF EXAM : 04/26/2023 1:00 PM PRIOR MAMMOGRAM STUDIES: None PRIOR ULTRASOUND STUDIES: 10/25/2022 REASON FOR STUDY: Follow-up evaluation right breast palpable solid mass. TECHNIQUE: Targeted FINDINGS: Ultrasound Findings: Ultrasound is targeted to the right breast 7 o'clock 3 cm from the nipple where there is a superficial circumscribed solid hypoechoic mass. It measures 19 x 16 x 22 mm in size. On October 25, it measured 20 x 14 x 20 mm. As such, it has not significantly changed. It has relatively benign ultrasonographic features. One year follow-up ultrasound recommended to ensure stability. IMPRESSION: Right breast solid mass is not significantly changed over the past 6 months and has relatively benign ultrasonographic features. 12 month follow-up evaluation recommended to ensure stability. BI-RADS Code: 3 - PROBABLY BENIGN RECOMMENDATION: 1. Ultrasound of the right breast is recommended in 1 year. 2. 3. COMMENTS: The findings and recommendations were discussed with the patient and any necessary follow-up imaging evaluation was scheduled prior to her departure from our department. Additionally, the results of this examination will be immediately mailed to the patient. -------- FINAL REPORT -------- Dictated By: Isabelle Ferguson MD Dictated Date: 04/26/2023 13:00 Assigned Physician: Isabelle Ferguson MD Reviewed and Electronically Signed By: Isabelle Ferguson MD Signed Date: 04/26/2023 13:03 Workstation ID: [id number] Transcribed By: Self Edit Transcribed Date: 04/26/2023 13:00 Normal [facility] US BREAST LIMITED RIGHTon US BREAST LIMITED RIGHT EXAMINATION TYPE: US BREAST LIMITED RIGHT DATE OF EXAM : 10/25/2022 1:20 PM PRIOR STUDIES: NONE REASON FOR STUDY: 27-year-old female presents for evaluation of palpable lump right breast felt by clinician on recent breast exam. TECHNIQUE: Targeted sonographic imaging. FINDINGS: At 7 o'clock right breast 3 cm from the nipple is an oval circumscribed hypoechoic solid appearing mass without internal vascularity measuring 2.0 x 2.0 x 1.4 cm. There is no visualized right axillary adenopathy. 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 Six-month follow-up diagnostic ultrasound recommended for initial reassessment. BI-RADS Code: 3 - PROBABLY BENIGN RECOMMENDATION: Diagnostic Ultrasound in 6 Months is recommended for the Right Breast. COMMENTS: The findings and recommendations were discussed with the patient and any necessary follow-up imaging evaluation was scheduled prior to her departure from our department. Additionally, the results of this examination will be immediately mailed to the patient. -------- FINAL REPORT -------- Dictated By: Sudhir Gan Dictated Date: 10/25/2022 13:43 Assigned Physician: Sudhir Gan Reviewed and Electronically Signed By: Sudhir Gan Signed Date: 10/25/2022 13:44 Workstation ID: [id number] Transcribed By: Self Edit Transcribed Date: 10/25/2022 13:43 Normal [facility] US Breast Limited Righton The palpable mass at 7 o'clock right breast appears probably benign, favored to reflect a fibroadenoma. Six-month follow-up diagnostic ultrasound recommended for initial reassessment. BI-RADS Code: 3 - PROBABLY BENIGN RECOMMENDATION: Diagnostic Ultrasound in 6 Months is recommended for the Right Breast. COMMENTS: The findings and recommendations were discussed with the patient and any necessary follow-up imaging evaluation was scheduled prior to her departure from our department. Additionally, the results of this examination will be immediately mailed to the patient. -------- FINAL REPORT -------- Dictated By: Sudhir Gan Dictated Date: 10/25/2022 13:43 Assigned Physician: Sudhir Gan Reviewed and Electronically Signed By: Sudhir Gan Signed Date: 10/25/2022 13:44 Workstation ID: [id number] Transcribed By: Self Edit Transcribed Date: 10/25/2022 13:43 [employer] EXAMINATION TYPE: US BREAST LIMITED RIGHT DATE OF EXAM : 10/25/2022 1:20 PM PRIOR STUDIES: NONE REASON FOR STUDY: 27-year-old female presents for evaluation of palpable lump right breast felt by clinician on recent breast exam. TECHNIQUE: Targeted sonographic imaging. FINDINGS: At 7 o'clock right breast 3 cm from the nipple is an oval circumscribed hypoechoic solid appearing mass without internal vascularity measuring 2.0 x 2.0 x 1.4 cm. There is no visualized right axillary adenopathy. Sudhir Desai MD - 10/25/2022 EXAMINATION TYPE: US BREAST LIMITED RIGHT DATE OF EXAM : 10/25/2022 1:20 PM PRIOR STUDIES: NONE REASON FOR STUDY: 27-year-old female presents for evaluation of palpable lump right breast felt by clinician on recent breast exam. TECHNIQUE: Targeted sonographic imaging. FINDINGS: At 7 o'clock right breast 3 cm from the nipple is an oval circumscribed hypoechoic solid appearing mass without internal vascularity measuring 2.0 x 2.0 x 1.4 cm. There is no visualized right axillary adenopathy. 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 Six-month follow-up diagnostic ultrasound recommended for initial reassessment. BI-RADS Code: 3 - PROBABLY BENIGN RECOMMENDATION: Diagnostic Ultrasound in 6 Months is recommended for the Right Breast. COMMENTS: The findings and recommendations were discussed with the patient and any necessary follow-up imaging evaluation was scheduled prior to her departure from our department. Additionally, the results of this examination will be immediately mailed to the patient. -------- FINAL REPORT -------- Dictated By: Sudhir Gan Dictated Date: 10/25/2022 13:43 Assigned Physician: Sudhir Gan Reviewed and Electronically Signed By: Sudhir Gan Signed Date: 10/25/2022 13:44 Workstation ID: [id number] Transcribed By: Self Edit Transcribed Date: 10/25/2022 13:43 [facility] Radiology Study observation (narrative) [facility] US Breast Limited RightOrder ed By: Sudhir Gan on 10-25-2022 [facility] Work Phone: CBC panel Auto (Bld)on 01-22 Erythrocyte distribution width (RBC) [Entitic vol] 14.8 % 11.6 - 14.8 % [facility] Hematocrit (Bld) [Volume fraction] 30.1 % Low 36 - 46 % [facility] Hemoglobin (Bld) [Mass/Vol] 9.5 g/dL Low 12 - 16 g/dL [facility] Interpretation and review of laboratory results Abnormal [facility] MCH (RBC) [Entitic mass] 26.9 pg 26 - [address] [facility] MCHC (RBC) [Mass/Vol] 31.6 g/dL 31 - 37 g/dL [facility] MCV (RBC) [Entitic vol] 85.3 fL 80 - [address] [facility] Nucleated RBC (Bld) [#/Vol] 0.00 10*3/uL [facility] Nucleated RBC/100 WBC (Bld) [Ratio] 0.0 % [facility] Platelet mean volume (Bld) [Entitic vol] 10.9 fL 9.4 - 12.[address] [facility] Platelets (Bld) [#/Vol] 184 10*3/uL [facility] RBC (Bld) [#/Vol] 3.53 10*6/uL Low [facility] ealth WBC (Bld) [#/Vol] 10.67 10*3/uL [facility] ABORH Verificationon 022 ABO and Rh group Nom (Bld) Blood group O Rh(D) positive [facility] ABO and Rh group Nom (Bld) ABO/Rh Verification [facility] Comment on above: Patient's ABO/Rh is verified. [facility] Blood type and Indirect anti body screen panel (Bld)on 01-21-2022 ABO and Rh group Nom (Bld) Blood group O Rh(D) positive [facility] Blood group antibody screen Ql Negative [facility] Specimen Expires 01/24/2022 23:59 EST [facility] CBC Auto Differentialon 01-06 Basophils (Bld) [#/Vol] 0.02 10*3/uL [facility] Basophils/100 WBC (Bld) 0.2 % [facility] Eosinophils (Bld) [#/Vol] 0.14 10*3/uL [facility] Eosinophils/100 WBC (Bld) 1.6 % [facility] Erythrocyte distribution width (RBC) [Entitic vol] 14.9 % High 11.6 - 14.8 % [facility] Hematocrit (Bld) [Volume fraction] 34.0 % Low 36 - 46 % [facility] Hemoglobin (Bld) [Mass/Vol] 10.9 g/dL Low 12 - 16 g/dL [facility] Immature granulocytes (Bld) [#/Vol] 0.07 10*3/uL [facility] Immature granulocytes/100 WBC (Bld) 0.80 % [facility] Comment on above: The IG parameter is the percentage of metamyelocytes, myelocytes and promyelocytes. An immature granulocyte count (IG) of 1% or more suggests the possibility of infection, an IG count of 3% is very likely related to an infection. Interpretation and review of laboratory results Abnormal [facility] Lymphocytes (Bld) [#/Vol] 1.61 10*3/uL [facility] Lymphocytes/100 WBC (Bld) 18.1 % [facility] MCH (RBC) [Entitic mass] 26.8 pg 26 - [address] [facility] MCHC (RBC) [Mass/Vol] 32.1 g/dL 31 - 37 g/dL [facility] MCV (RBC) [Entitic vol] 83.5 fL 80 - [address] [facility] Monocytes (Bld) [#/Vol] 0.69 10*3/uL [facility] Monocytes/100 WBC (Bld) 7.8 % [facility] Neutrophils (Bld) [#/Vol] 6.35 10*3/uL [facility] Neutrophils/100 WBC (Bld) 71.5 % [facility] Nucleated RBC (Bld) [#/Vol] 0.00 10*3/uL [facility] Nucleated RBC/100 WBC (Bld) [Ratio] 0.0 % [facility] Platelet mean volume (Bld) [Entitic vol] 11.0 fL 9.4 - 12.[address] [facility] Platelets (Bld) [#/Vol] 215 10*3/uL [facility] RBC (Bld) [#/Vol] 4.07 10*6/uL [facility] WBC (Bld) [#/Vol] 8.88 10*3/uL [facility] T. pallidum IgG Ql (S)on Interpretation and review of laboratory results Normal [facility] T. pallidum Ab Ql (S) Negative Negative [facility] COVID-19/INFLUENZA A,B MOLEC ULARon 07-12-2021 SARS-CoV-2 (COVID-19) Ab IA Ql SARS-COV-2 RNA (MARISSA): Not Detected INFLUENZA A (MARISSA): Not Detected INFLUENZA B (MARISSA): Not Detected Normal Not Detected [facility] Comment on above: Order Comment: This test was performed under the FDA's Emergency Use Authorization (EUA). Testing was performed using the Mary SARS-CoV-2 RT-PCR AND Influenza A/B assay on the Marissa Mary 6800 System. This test has not been approved for use in asymptomatic patients and its performance in this patient population has not been evaluated. Negative results do not rule out the presence of SARS-CoV-2/COVID-19, influenza A, and/or influenza B. Fact sheets for this EUA can be found at the following links: For Healthcare Providers: https://www.[place].gov/UserEvents/822322/download ?? For Patients: https://www.[place].gov/UserEvents/446012/download Performed By: #### L [id number] #### [facility] [address] [place] [address] Antonio Santiago M[address]D. [id number] CT PULMONARY ARTERIESon CT PULMONARY ARTERIES EXAMINATION: CTA OF THE CHEST 07/12/2021 TECHNIQUE: CTA of the chest was performed after the administration of intravenous contrast. Multiplanar reformatted images are provided for review. MIP images are provided for review. Dose modulation, iterative reconstruction, and/or weight based adjustment of the mA/kV was utilized to reduce the radiation dose to as low as reasonably achievable. COMPARISON: None. HISTORY: ORDERING SYSTEM PROVIDED HISTORY: Pulmonary embolism (PE) suspected, high prob; TECHNOLOGIST PROVIDED HISTORY: Illness/Other Acuity: Acute Reason for Exam: Abdominal Pain; Fatigue; Diarrhea; Chest Pain; Shortness of Breath Type of Encounter: Initial Additional signs and symptoms: / FINDINGS: Pulmonary Arteries: Pulmonary arteries are adequately opacified for evaluation. No evidence of intraluminal filling defect to suggest pulmonary embolism. Main pulmonary artery is normal in caliber. Mediastinum: No evidence of mediastinal lymphadenopathy. The heart and pericardium demonstrate no acute abnormality. There is no acute abnormality of the thoracic aorta. Lungs/pleura: The lungs are without acute process. No focal consolidation or pulmonary edema. There are trace bilateral pleural effusions but no evidence of pneumothorax. Upper Abdomen: Limited images of the upper abdomen are unremarkable. Soft Tissues/Bones: No acute bone or soft tissue abnormality. IMPRESSION: No evidence of pulmonary embolism or acute pulmonary abnormality. Trace bilateral pleural effusions. Workstation ID: [id number] Dictated by: TIFFANY WALL on MonJul 12, 2021 5:05:49 PM EST Transcribed by: TIFFANY WALL on MonJul 12, 2021 5:05:49 PM EST Finalized by: TIFFANY WALL on MonJul 12, 2021 5:05:49 PM EST Normal [facility] Comment on above: Order Comment: Injur y/Trauma or Illness?:Illness/Other How long have you had these symptoms (acute/chronic)?:Acute Reason for exam?:Abdominal Pain; Fatigue; Diarrhea; Chest Pain; Shortness of Breath Type of Exam?:Initial Additional signs and symptoms?:/ US OB 1ST TRIMESTER WITH TRA NSVAGINAL TRANSABDOMINAL AND COLOR FLOW SINGLE FETUSon 07-12-2021 US OB 1ST TRIMESTER WITH TRANSVAGINAL TRANSABDOMINAL AND COLOR FLOW SINGLE FETUS EXAMINATION: FIRST TRIMESTER OBSTETRIC ULTRASOUND 07/12/2021 TECHNIQUE: Transabdominal and transvaginal first trimester obstetric pelvic ultrasound was performed with color Doppler flow evaluation. COMPARISON: None. HISTORY: ORDERING SYSTEM PROVIDED HISTORY: pelvic pain, 1st trimester; TECHNOLOGIST PROVIDED HISTORY: Illness/Other Acuity: Acute Reason for Exam: Pelvic pain, SOB Cancer History: n Surgery, Radiation History: Type of Encounter: Initial Additional signs and symptoms: n FINDINGS: Uterus: 11.1 x 7.3 x 7.4 cm. Gestational Sac(s): Single normal appearing gestational sac. No evidence of subchorionic hemorrhage. Yolk Sac: Present. Pole: Single pole. [place] Rump Length: 24.3 mm. Heart Rate: 182 beats per minute. Right ovary: 2.8 x 1.4 x 1.9 cm. Left ovary: 3 x 2.7 x 1.9 cm. Corpus luteum cyst measures 1.6 x 1.5 x 1.2 cm. Free fluid: Small amount of free fluid noted. There is evidence of subchorionic hemorrhage which measures 2.2 x 1.6 x 1 cm. Measurements: Estimated gestational age by current ultrasound: 9 weeks and 1 day. Estimated gestational AGE by LMP/prior ultrasound: 8 weeks and 6 days. Estimated Due Date: 02/13/2022. IMPRESSION: Viable 9 week 1 day with estimated date of delivery 02/13/2022. Small area of subchorionic hemorrhage measuring 2.2 x 1.6 x 1 cm. Corpus luteum cyst in the left ovary measures up to 1.6 cm. Small amount of free fluid. [employer] Workstation ID: [id number] Dictated by: TIFFANY WALL on MonJul 12, 2021 5:18:13 PM EST Transcribed by: AMPARO HERRERA on MonJul 12, 2021 5:37:56 PM EST Finalized by: TIFFANY WALL on MonJul 12, 2021 6:21:00 PM EST Normal [facility] Comment on above: Order Comment: Injur y/Trauma or Illness?:Illness/Other How long have you had these symptoms (acute/chronic)?:Acute Reason for exam?:Pelvic pain, SOB History of cancer?:n Surgeries, chemotherapy, or radiation?: Type of Exam?:Initial Additional signs and symptoms?:n HIV 1/2 Screen (4th Generati on)on 06-29-2021 HIV 1+2 Ab+HIV1 p24 Ag IA Ql Negative Negative [facility] Hepatitis B Surface Antigeno n 06-29-2021 HBV surface Ag Ql (S) Negative Negative [facility] Hepatitis C AntibodyOrdered By: Ute Lopez on 06-29-2021 HCV Ab Ql (S) Negative Negative [facility] No Panel InformationOrdered By: Ute Lopez on 06-29-2021 [facility] RPRon 06-29-2021 Reagin Ab RPR Ql (S) Non-Reactive Non-Reactive [facility] Rubella Antibody, IgGon 06-09 Rubella virus IgG Ql (S) Immune [facility] COVID-19, MOLECULARon 2020 SARS-CoV-2 (COVID-19) Ab IA Ql Detected Abnormal Not Detected [facility] Comment on above: Result Comment: This test was performed under the FDA's Emergency Use Authorization (EUA). Testing was performed using the [employer] ID NOW COVID-19 assay on the ID NOW platform. This test has not been approved for use in asymptomatic patients and its performance in this patient population has not been evaluated. Negative results do not rule out the presence of SARS-CoV-2/COVID-19. Fact sheets for the EUA can be found at the following links: For Healthcare Providers: https://www.fda.gov/media/418099/download For Patients: https://www.fda.gov/media/849617/download CBC with Differentialon 07-06 Basophils (Bld) [#/Vol] 0.00 thou/mcL Normal 0.00-0.20 [facility] Comment on above: Performed By: #### 5 7021-8 #### [facility] [address] [place] [id number] Basophils/100 WBC (Bld) 0.5 % Normal 0.0-2.0 [facility] Comment on above: Performed By: #### 5 7021-8 #### [facility] [address] [place] [id number] Eosinophils (Bld) [#/Vol] 0.20 thou/mcL Normal 0.00-0.70 [facility] Comment on above: Performed By: #### 5 7021-8 #### [address] [address] Eosinophils/100 WBC (Bld) 3.1 % Normal 0.0-7.0 [facility] Comment on above: Performed By: #### 5 7021-8 #### [address] [address] Erythrocyte distribution width (RBC) [Entitic vol] 14.8 % Normal 11.0-14.8 [facility] Comment on above: Performed By: #### 5 7021-8 #### [address] [address] Hematocrit (Bld) [Volume fraction] 37.2 % Normal 35.0-45.0 [facility] Comment on above: Performed By: #### 5 7021-8 #### [address] [address] Hemoglobin (Bld) [Mass/Vol] 12.4 g/dL Normal 12.0-16.0 [facility] Comment on above: Performed By: #### 5 7021-8 #### [address] [address] Lymphocytes (Bld) [#/Vol] 1.50 thou/mcL Normal 1.00-4.80 [facility] Comment on above: Performed By: #### 5 7021-8 #### [address] [address] Lymphocytes/100 WBC (Bld) 25.5 % Normal 22.0-44.0 [facility] Comment on above: Performed By: #### 5 7021-8 #### [facility] [address] [place] [address] MCH (RBC) [Entitic mass] 27.8 Picograms Normal 27.0-34.0 [facility] Comment on above: Performed By: #### 5 7021-8 #### [facility] [address] [place] [address] MCHC (RBC) [Mass/Vol] 33.4 g/dL Normal 32.0-36.0 [facility] Comment on above: Performed By: #### 5 7021-8 #### [address] [address] MCV (RBC) [Entitic vol] 83.3 fL Normal 80.0-97.0 [facility] Comment on above: Performed By: #### 5 7021-8 #### [address] [address] Monocytes (Bld) [#/Vol] 0.60 thou/mcL Normal 0.00-0.90 [facility] Comment on above: Performed By: #### 5 7021-8 #### [address] [address] Monocytes/100 WBC (Bld) 9.4 % Normal 0.0-12.0 [facility] Comment on above: Performed By: #### 5 7021-8 #### [facility] [address] [place] [address] Neutrophils (Bld) [#/Vol] 3.60 thou/mcL Normal 1.80-7.70 [facility] Comment on above: Performed By: #### 5 7021-8 #### [facility] [address] [place] [address] Neutrophils/100 WBC (Bld) 61.5 % Normal 40.0-70.0 [facility] Comment on above: Performed By: #### 5 7021-8 #### [facility] [address] [place] [address] 78285 Platelet mean volume (Bld) [Entitic vol] 9.2 fL Normal 6.2-12.1 [facility] Comment on above: Performed By: #### 5 7021-8 #### [facility] [address] [place] [address] 64214 Platelets (Bld) [#/Vol] 265 thou/mcL Normal 142-424 [facility] Comment on above: Performed By: #### 5 7021-8 #### [facility] [address] [place] [address] 96389 RBC (Bld) [#/Vol] 4.47 million/mcL Normal 3.80-5.10 [facility] Comment on above: Performed By: #### 5 7021-8 #### [facility] [address] [place] [address] 34015 WBC (Bld) [#/Vol] 5.9 thou/mcL Normal 4.6-10.2 [facility] Comment on above: Performed By: #### 5 7021-8 #### [facility] [address] [place] [address] 96514 Comprehensive Metabolic Pane kartik 07-20-2020 Albumin [Mass/Vol] 3.9 g/dL Normal 3.5-4.8 [facility] Comment on above: Performed By: #### 6 9405-9, 84383-3n7, 30837-1, 52563-9, 3016- 3 #### [facility] [address] [place] [address] 41510 ALP [Catalytic activity/Vol] 54 Units/L Normal 32-91 [facility] Comment on above: Performed By: #### 6 9405-9, 38302-0f1, 28134-4, 23208-4, 3016- 3 #### [facility] [address] [place] [address] 08637 ALT [Catalytic activity/Vol] 10 Units/L Normal 7-52 [facility] Comment on above: Result Comment: Marco gibbons note: Change in reference range for ALT occurred on 03/19/20 at [facility], [facility], [facility], and [facility]. Performed By: #### 6 9405-9, 51223-5b3, 76875-4, 93605-6, 3016-3 #### [facility] [address] [place] [address] Anion gap [Moles/Vol] 7.0 mmol/L Normal 6.0-18.0 [facility] Comment on above: Performed By: #### 6 9405-9, 25462-6z2, 07282-5, 56603-9, 3016- 3 #### [facility] [address] [place] [address] 26811 AST [Catalytic activity/Vol] 14 Units/L Low 15-41 [facility] Comment on above: Performed By: #### 6 9405-9, 48924-0l1, 74372-6, 09259-2, 3016- 3 #### [facility] [address] [place] [address] 23105 Bilirubin [Mass/Vol] 0.3 mg/dL Normal 0.3-1.2 [facility] Comment on above: Performed By: #### 6 9405-9, 11316-1b5, 85516-1, 69195-1, 3016- 3 #### [facility] [address] [place] [address] 69942 Calcium [Mass/Vol] 9.1 mg/dL Normal 8.9-10.3 [facility] Comment on above: Performed By: #### 6 9405-9, 85027-6r9, 12216-7, 23705-4, 3016- 3 #### [facility] [address] [place] [address] 51643 Chloride [Moles/Vol] 106 mmol/L Normal 98-107 [facility] Comment on above: Performed By: #### 6 9405-9, 87328-8b0, 58884-1, 31885-8, 3016- 3 #### [facility] [address] [place] [address] 83787 CO2 [Moles/Vol] 29 mmol/L Normal 22-32 [facility] Comment on above: Performed By: #### 6 9405-9, 78341-3t2, 41971-5, 34720-7, 3015- 3 #### [facility] [address] [place] [address] 97906 Creatinine [Mass/Vol] 0.84 mg/dL Normal 0.60-1.30 [facility] Comment on above: Performed By: #### 6 9405-9, 20137-7y7, 54294-4, 93717-4, 3015- 3 #### [facility] [address] [place] [address] 75399 Glucose [Mass/Vol] 92 mg/dL Normal 70-99 [facility] Comment on above: Result Comment: U pdated ADA Reference Range A normal fasting glucose concentration is less than 100 mg/dL. An impaired fasting glucose concentration is 100-125 mg/dL. A provisional diagnosis of diabetes mellitus can be made when a fasting glucose concentration is greater than 125 mg/dL. Performed By: #### 6 9405-9, 35503-4e4, 91639-5, 53890-9, 3015-3 #### [facility] [address] [place] [address] 16483 Potassium [Moles/Vol] 3.7 mmol/L Normal 3.6-5.1 [facility] Comment on above: Performed By: #### 6 9405-9, 94946-4g0, 98937-0, 53828-7, 3015- 3 #### [facility] [address] [place] [address] Protein [Mass/Vol] 6.8 g/dL Normal 6.1-7.9 [facility] Comment on above: Performed By: #### 6 9405-9, 36375-5c8, 81811-4, 04821-9, 6- 3 #### [facility] [address] [place] [address] 15176 Sodium [Moles/Vol] 142 mmol/L Normal 136-145 [facility] Comment on above: Performed By: #### 6 9405-9, 70663-6c4, 68167-5, 86639-2, 3016- 3 #### [facility] [address] [place] [address] 92642 Urea nitrogen (BldV) [Mass/Vol] 14 mg/dL Normal 8-20 [facility] Comment on above: Performed By: #### 6 9405-9, 28684-7b6, 77386-7, 78555-8, 3016- 3 #### [facility] [address] [place] [address] 00835 GFRaaon 07-20-2020 GFR/1.73 sq M predicted among blacks MDRD (S/P/Bld) [Vol rate/Area] mL/min/{1.73_m2} Normal [facility] Comment on above: Result Comment: The MDRD equation has not been validated for those over 70 years, women, patients with serious co-morbid conditions, or with extremes of body size, muscle mass of nutritional status. Performed By: #### 6 9405-9, 99643-8n6, 04911-6, 09128-9, 6-3 #### [facility] [address] [place] [address] 92087 GFRbbon 07-20-2020 GFR/1.73 sq M predicted among non-blacks MDRD (S/P/Bld) [Vol rate/Area] mL/min/{1.73_m2} Normal [facility] Comment on above: Performed By: #### 6 9405-9, 86678-5x8, 67396-7, 21250-8, 3016- 3 #### [facility] [address] [place] [address] 11791 Lipid Panelon 07-20-2020 Cholesterol [Mass/Vol] 185 mg/dL Normal <200 [facility] Comment on above: Result Comment: Refe r to the National Cholesterol Education Program ATP III cut offs for risk stratification. Performed By: #### 6 9405-9, 84480-2e0, 67402-1, 02257-6, 3016-3 #### [facility] [address] [place] [address] 21053 Cholesterol in HDL [Mass/Vol] 60 mg/dL Normal >40 [facility] Comment on above: Performed By: #### 6 9405-9, 14758-8t6, 95737-6, 88864-2, 3016- 3 #### [facility] [address] [place] [address] 00009 Cholesterol in LDL [Mass/Vol] 109 mg/dL High <100 [facility] Comment on above: Performed By: #### 6 9405-9, 68188-8f7, 67325-3, 56489-4, 3016- 3 #### [facility] [address] [place] [address] 84204 Cholesterol in VLDL [Mass/Vol] 16 mg/dL Normal 2-38 [facility] Comment on above: Performed By: #### 6 9405-9, 14391-9j6, 74765-9, 35472-9, 3016- 3 #### [facility] [address] [place] [address] 02159 Triglyceride [Mass/Vol] 78 mg/dL Normal <200 [facility] Comment on above: Performed By: #### 6 9405-9, 96029-0q8, 28324-2, 43254-0, 3016- 3 #### [facility] [address] [place] [address] 35631 Thyroid Stimulating Hormoneo n 07-20-2020 TSH Qn (Bld) 1.37 mcIU/mL Normal 0.45-5.33 [facility] Comment on above: Performed By: #### 6 9405-9, 40007-8t7, 12766-0, 24103-4, 3016- 3 #### [facility] [address] [place] [address] 02349 Vital Signs Date Time Vital Sign Value Performing Clinician Facility 11-06-2024 13:29-0400 Body height 177.8 cm Fernie Rizzo DO Work Phone: [facility] 11-06-2024 13:29-0400 Body mass index (BMI) [Ratio] 29.99 kg/m2 Fernie Itzkowitz DO Work Phone: [facility] 11-06-2024 13:29-0400 Body weight 94.8 kg Fernie Itzkowitz DO Work Phone: [facility] 11-06-2024 13:29-0400 Diastolic blood pressure 60 mm[Hg] Fernie Itzkowitz DO Work Phone: [facility] 11-06-2024 13:29-0400 Systolic blood pressure 110 mm[Hg] Fernie Itzkowitz DO Work Phone: [facility] 10-30-2024 13:05-0400 Body temperature 98.5 [degF] Efrain Ball DO Work Phone: [facility] 10-30-2024 13:05-0400 Diastolic blood pressure 76 mm[Hg] Efrain Ball DO Work Phone: [facility] 10-30-2024 13:05-0400 Heart rate 70 /min Efrain Ball DO Work Phone: [facility] 10-30-2024 13:05-0400 Respiratory rate 18 /min Efrain Ball DO Work Phone: [facility] 10-30-2024 13:05-0400 SaO2% (BldA) [Mass fraction] 99 % Efrain Ball DO Work Phone: [facility] 10-30-2024 13:05-0400 Systolic blood pressure 110 mm[Hg] Efrain Ball DO Work Phone: [facility] 10-22-2024 14:10-0400 Body weight 93.95 kg Patricia MILLER Work Phone: [facility] 10-22-2024 14:10-0400 Diastolic blood pressure 64 mm[Hg] Patricia MILLER Work Phone: [facility] 10-22-2024 14:10-0400 Systolic blood pressure 120 mm[Hg] Patricia MILLER Work Phone: [facility] 02-20-2024 13:47-0400 Body height 177.8 cm [facility] 02-20-2024 13:47-0400 Body mass index (BMI) [Ratio] 29.9 kg/m2 [facility] 02-20-2024 13:47-0400 Body weight 94.85 kg [facility] 02-20-2024 13:47-0400 Diastolic blood pressure 73 mm[Hg] [facility] 02-20-2024 13:47-0400 Heart rate 87 /min [facility] 02-20-2024 13:47-0400 Respiratory rate 12 /min [facility] 02-20-2024 13:47-0400 Systolic blood pressure 107 mm[Hg] [facility] 2024 15:56-0400 Body height 177.8 cm Silvia Chong MD Work Phone: [facility] 2024 15:56-0400 Body mass index (BMI) [Ratio] 30.07 kg/m2 Silvia Chong MD Work Phone: [facility] 2024 15:56-0400 Body weight 95.07 kg Silvia Chong MD Work Phone: [facility] 2024 15:56-0400 Diastolic blood pressure 72 mm[Hg] Silvia Chong MD Work Phone: [facility] 2024 15:56-0400 Systolic blood pressure 124 mm[Hg] Silvia Chong MD Work Phone: [facility] 01-15-2024 14:45-0400 Body height 177.8 cm [facility] 01-15-2024 14:45-0400 Body mass index (BMI) [Ratio] 29.36 kg/m2 [facility] 01-15-2024 14:45-0400 [facility]-15-2024 14:45-0400 Diastolic blood pressure 64 mm[Hg] [facility] 01-15-2024 14:45-0400 Systolic blood pressure 122 mm[Hg] [facility] 01-23-2022 07:45-0400 Body temperature 98.8 [degF] Cayla Kerrinarayan DO Work Phone: [facility] 01-23-2022 07:45-0400 Diastolic blood pressure 69 mm[Hg] Cayla Arley DO Work Phone: [facility] 01-23-2022 07:45-0400 Heart rate 77 /min Cayla Kerrinarayan DO Work Phone: [facility] 01-23-2022 07:45-0400 Respiratory rate 16 /min Cayla Arley DO Work Phone: [facility] 01-23-2022 07:45-0400 SaO2% (BldA) [Mass fraction] 96 % Cayla Arley DO Work Phone: [facility] 01-23-2022 07:45-0400 Systolic blood pressure 106 mm[Hg] Cayla Kierajaneemarcellusnarayan DO Work Phone: [facility] 01-22-2022 08:46-0400 Body height 177.8 cm Cayla Arley DO Work Phone: [facility] 01-22-2022 08:46-0400 Body mass index (BMI) [Ratio] 31.71 kg/m2 Cayla Kerrinarayan DO Work Phone: [facility] 01-22-2022 08:46-0400 Body weight 100.25 kg Caylakirsten Tubbs DO Work Phone: [facility] 11-30-2020 13:51-0400 Body temperature 98.49 [degF] Sheyla Tran MD Work Phone: [facility] 11-30-2020 13:51-0400 Body weight 74.84 kg Sheyla Tran MD Work Phone: [facility] 11-30-2020 13:51-0400 Heart rate 81 /min Sheyla Tran MD Work Phone: [facility] 11-30-2020 13:51-0400 SaO2% (BldA) [Mass fraction] 95 % Sheyla Tran MD Work Phone: [facility] Encounters Encounter Date Encounter Type Care Provider Facility Start: 11-06-2024 End: 11-06-2024 Office outpatient visit 15 minutes Fernie Gaudencio So DO Work Phone: [facility] Comment on above: Masses of both breas ts (Primary Dx); Fibroadenoma of both breasts Start: 11-06-2024 End: 11-06-2024 ambulatory FERNIE Gaudencio SO Not Available Start: 10-30-2024 End: 10-30-2024 Admission to same day surgery center Fernie Rizzo DO -[facility] Start: 10-30-2024 End: 10-30-2024 ambulatory Efrain Muñoz DO Work Phone: [facility] Work Phone: Start: 10-28-2024 End: 10-28-2024 Patient encounter procedure Fernie Rizzo DO [facility] Work Phone: Start: 10-28-2024 End: 10-28-2024 ambulatory Efrain Toni Facility:[facility] Start: 10-28-2024 End: 10-28-2024 Patient encounter procedure Patricia Segura [employer] -[facility] Work Phone: Start: 10-28-2024 End: 10-28-2024 ambulatory Patricia Segura Facility:[facility] Start: 10-22-2024 End: 10-22-2024 Bamboo flowsheet Patricia MILLER Work Phone: [facility] Start: 10-22-2024 End: 10-22-2024 Bamboo flowsheet Patricia MILLER Work Phone: [facility] Start: 10-22-2024 End: 10-22-2024 ambulatory PATRICIA SEGURA Not Available Start: 10-22-2024 End: 10-22-2024 Office outpatient visit 15 minutes Patricia MILLER Work Phone: [facility] Comment on above: Breast lump on right side at 6 o'clock position; Breast lump on left side at 6 o'clock position Start: 02-20-2024 End: 02-20-2024 ambulatory [facility] Work Phone: Start: 02-20-2024 End: 02-20-2024 Patient encounter procedure [facility] Work Phone: Start: 2024 End: 2024 Office outpatient visit 25 minutes Silvia Chong MD Work Phone: [facility] Comment on above: DUB (dysfunctional u terine bleeding) (Primary Dx) Start: 2024 End: 2024 ambulatory [facility] Start: 01-15-2024 End: 01-15-2024 ambulatory [facility] Start: 01-15-2024 End: 01-15-2024 Office outpatient new 20 minutes [facility] Front Office Manager [facility] Comment on above: Left lower quadrant abdominal pain (Primary Dx) Start: 04-26-2023 ambulatory SUDHIR GAN [facility] Start: 10-25-2022 [facility] Start: 10-25-2022 End: 10-25-2022 Evaluation and management of inpatient [facility] [address] [facility] Start: 10-25-2022 End: 10-25-2022 Subsequent hospital visit by physician [facility] [address] [facility] Comment on above: Mass of right breast , unspecified quadrant; Mass of breast, unspecified laterality Start: 06-20-2022 End: 06-20-2022 Emergency department patient visit PHYSICIAN ALLAN [facility] Start: 01-21-2022 End: 01-23-2022 Evaluation and management of inpatient CAYLA TUBBS [facility] Start: 01-21-2022 End: 01-23-2022 Evaluation and management of inpatient Cayla Tubbs DO Work Phone: [facility]/ Start: 01-19-2022 End: 01-19-2022 ambulatory CAYLA TUBBS [facility] Start: 01-12-2022 End: 01-12-2022 ambulatory CAYLA TUBBS [facility] Start: 11-18-2021 End: 11-22-2021 ambulatory CAYLA TUBBS [facility] Start: 07-12-2021 End: 07-12-2021 Emergency department patient visit PHYSICIAN ALLAN [facility] Start: 07-09-2021 Refill Luisa edmond [employer] Work Phone: [facility] Start: 07-09-2021 Refill Luisa edmond [employer] Work Phone: [facility] Start: 02-01-2021 End: 02-01-2021 [facility] Start: 11-30-2020 End: 11-30-2020 ambulatory PHYSICIAN ALLAN [facility] Start: 11-30-2020 End: 11-30-2020 Office outpatient new 30 minutes Sheyla Tran MD Work Phone: [facility] [place] Comment on above: Bronchitis (Primary Dx); YOMAIRA (secretory otitis media), right Start: 09-21-2020 ambulatory MIKAYLA SCALES Facilit y:[facility] Start: 08-20-2020 ambulatory MIKAYLA SCALES Facilit y:[facility] Procedures Date Procedure Procedure Detail Performing Clinician Start: 10-30-2024 Bilateral mammography Efrain Ball DO Work Phone: Start: 10-30-2024 Ultrasonography guided biopsy of left breast Efrain Ball DO Work Phone: Start: 10-30-2024 Ultrasonography guided biopsy of right breast Efrain Ball DO Work Phone: Start: 10-28-2024 Bilateral mammography Efrain Ball DO Work Phone: Start: 10-28-2024 Ultrasonography of bilateral breasts Efrain Muñoz DO Work Phone: Start: 10-25-2022 Us breast uni real time with image limited Cayla Tubbs DO Work Phone: Start: 01-22-2022 Blood count complete automated Marlene Fischbein DO Work Phone: Start: 01-21-2022 End: 01-21-2022 section Cayla Tubbs DO Work Phone: Start: 01-21-2022 Blood group typing Cayla Tubbs DO Work Phone: Start: 01-21-2022 End: 01-22-2022 H/O: section History of delivery Cayla Tubbs DO Work Phone: Start: 01-21-2022 Blood count complete auto&auto difrntl wbc Amy Mccartyup DO Work Phone: Start: 01-21-2022 Blood typing serologic abo Amy James St roup DO Work Phone: Start: 06-29-2021 Antibody hiv-1&hiv-2 single result Historical Provider Start: 06-29-2021 Iaad ia hepatitis b surface antigen Historical Provider Plan of Treatment Date Care Activity Detail Author Start: 12-29-2031 DTaP,Tdap and Td Vac cines (2 - Td or Tdap) DTaP,Tdap and Td Vaccines (2 - Td or Tdap) [facility] Start: 12-29-2031 DTaP,Tdap,and Td Vac cines (2 - Td or Tdap) DTaP,Tdap,and Td Vaccines (2 - Td or Tdap) [facility] Start: 02-20-2025 End: 02-20-2025 Patient encounter procedure 02/20/2025 3:00 PM EDT Office Visit [facility] [address] [place] [address] Patricia Segura PA [address] [place] [address] [facility] Start: 02-04-2025 Adult BMI Screening Adult BMI Screen ing [facility] Start: 02-04-2025 Tobacco Screening Tobacco Screening [facility] Start: 01-14-2025 Adult BMI Screening Adult BMI Screen ing [facility] Start: 01-14-2025 Tobacco Screening Tobacco Screening [facility] Start: 01-06-2025 Influenza vaccination Influenza Vacc ine (#1) [facility] Start: 10-22-2024 End: 12-22-2025 MG Breast - bilateral Diagnostic Bilateral diagnostic mammogram Imaging Routine Breast lump on right side at 6 o'clock position Breast lump on left side at 6 o'clock position Expected: 10/22/2024 (Approximate), Expires: 12/22/2025 [facility] Work Phone: Comment on above: Expected: 10/22/2024 (Approximate), Expires: 12/22/2025 Start: 04-01-2024 End: 04-01-2024 Patient encounter procedure 04/01/2024 9:15 AM EST Procedure visit [facility] [address] [place] [address] Silvia Chong MD [address] [place], [place] [id number] [facility] Start: 2024 End: 02-04-2025 US Pelvis transabdominal and transvaginal Ultrasound pelvic with transvaginal Imaging Routine DUB (dysfunctional uterine bleeding) Expected: 2024, Expires: 02/04/2025 [facility] Comment on above: Expected: 2024 , Expires: 02/04/2025 Start: 01-30-2024 End: 01-30-2024 Patient encounter procedure 01/30/2024 3:15 PM EDT Office Visit [facility] [address] [place] [address] Silvia Chong MD [address] [place] [address] [facility] Start: 01-19-2024 End: 01-19-2024 Patient encounter procedure 01/19/2024 2:00 PM EDT Appointment [facility] - Ultrasound [address] [place] [address] Candy Puckett, [employer] [address] [place] [address] [facility] - Ultrasound Start: 01-15-2024 End: 01-14-2025 US Pelvis transabdominal and transvaginal Ultrasound pelvic with transvaginal Imaging Routine Left lower quadrant abdominal pain Expected: 01/15/2024, Expires: 01/14/2025 [facility] Work Phone: Comment on above: Expected: 01/15/2024 , Expires: 01/14/2025 Start: 01-07-2024 COVID-19 Vaccine ( season) COVID-19 Vaccine ( season) [facility] Start: 01-07-2024 Influenza vaccination Influenza Vacc ine [facility] Start: 04-26-2023 End: 04-26-2023 Patient encounter procedure 04/26/2023 Appointment Rad[facility] Start: 2023 Screening for malign ant neoplasm of cervix [facility] Start: 01-06-2023 Influenza vaccination Influenz a Vaccine (Season Ended) [facility] Start: 01-06-2021 Influenza vaccination [facility] Start: 11-16-2020 COVID-19 Vaccine (3 - Pfizer series) COVID-19 Vaccine (3 - Pfizer series) [facility] Start: 11-13-2020 Adolescent depressio n screening assessment Depression Screening [facility] Start: 11-13-2020 Hepatitis C screening Hepatitis C Sc reening [facility] Start: 11-13-2020 HIV screening HIV Screening [facility] Start: 11-13-2020 Social Influencers o f Health Screening Social Influencers of Health Screening [facility] Start: 2014 Screening for malign ant neoplasm of cervix [facility] Start: 02-06-2012 DTaP,Tdap,and Td Vac cines (1 - Tdap) DTaP,Tdap,and Td Vaccines (1 - Tdap) [facility] Start: 2011 Adult BMI Follow Up Plan Adult BMI Follow Up Plan [facility] Start: 2011 Hepatitis C screening Hepatitis C Sc reening [facility] Start: 02-06-2008 HIV screening HIV Screening [facility] Start: 2005 Depression screening using PHQ-9 (Patient Health Questionnaire 9) score [facility] Start: 1998 COVID-19 Vaccine (1) COVID-19 Vaccin e (1) [facility] Start: 02-06-1996 History and physical examination, annual for health maintenance Wellness Visit [facility] Start: 1994 MMR Vaccines (1 of 1 - Standard series) MMR Vaccines (1 of 1 - Standard series) [facility] Start: 1993 Hepatitis B Vaccines (1 of 3 - 3-dose series) Hepatitis B Vaccines (1 of 3 - 3-dose series) [facility] Start: 1993 Screening for malign ant neoplasm of cervix Pap Smear [facility] Start: 1993 Tetanus vaccination Tetanus: Every [address] [facility] End: 02-04-2025 CBC panel - Blood by Automated count CBC without diff Lab Routine DUB (dysfunctional uterine bleeding) 1 Occurrences starting 2024 until 02/04/2025 [employer] Work Phone: Comment on above: 1 Occurrences starti ng 2024 until 02/04/2025 End: 02-04-2025 Follicle stimulating hormone Follicle stimulating hormone Lab Routine DUB (dysfunctional uterine bleeding) 1 Occurrences starting 2024 until 02/04/2025 Mobile Location, IP Comment on above: 1 Occurrences starti ng 2024 until 02/04/2025 End: 02-04-2025 HCG, Quantitative, HCG, Quantitative, Lab Routine DUB (dysfunctional uterine bleeding) 1 Occurrences starting 2024 until 02/04/2025 [facility] Comment on above: 1 Occurrences starti ng 2024 until 02/04/2025 End: 02-04-2025 Luteinizing hormone Luteinizing hormone Lab Routine DUB (dysfunctional uterine bleeding) 1 Occurrences starting 2024 until 02/04/2025 [facility] Comment on above: 1 Occurrences starti ng 2024 until 02/04/2025 End: 02-04-2025 Prolactin Prolactin Lab Routine DUB (dysfunctional uterine bleeding) 1 Occurrences starting 2024 until 02/04/2025 [facility] Comment on above: 1 Occurrences starti ng 2024 until 02/04/2025 End: 02-04-2025 Thyrotropin [Units/volume] in Serum or Plasma TSH Lab Routine DUB (dysfunctional uterine bleeding) 1 Occurrences starting 2024 until 02/04/2025 [facility] Comment on above: 1 Occurrences starti ng 2024 until 02/04/2025 End: 02-04-2025 Thyroxine (T4) free [Mass/volume] in Serum or Plasma T4, free Lab Routine DUB (dysfunctional uterine bleeding) 1 Occurrences starting 2024 until 02/04/2025 [facility] Comment on above: 1 Occurrences starti ng 2024 until 02/04/2025 Immunizations Immunization Date Immunization Notes Care Provider [facility] 01-21-2022 diphtheria, tetanus toxoids and acellular pertussis vaccine, unspecified formulation Cayla Tubbs DO Work Phone: [facility] 01-21-2022 measles, mumps and r ubella virus vaccine Cayla Tubbs DO Work Phone: [facility] 01-21-2022 varicella zoster imm une globulin Cayla Tubbs DO Work Phone: [facility] Payers Date Payer Category Payer Self-pay 2023 Private Health Insurance [id number] 2023 Unknown [id number] 2020 Unknown ANTHEM ANTHEM BLUE/PREF/HMO/PPO [id number] 2020-Present [id number] 2020 Blue Cross Blue Shield [place] CHOICE POS [id number] 2020-Present [address] [place] [address] [id number] 2020 Unknown [id number] 2020 Unknown [id number] 1993 Unknown [id number] 2.16.840.1.807674.3.579.2.5 94 1993 Unknown [id number] 2.16.840.1.419610.3.579.2.5 94 1993 Unknown [id number] 2.16.840.1.378434.3.579.2.9 03 1993 Unknown [id number] 2.16.840.1.342745.3.579.2.9 03 1993 Unknown [id number] 2.16.840.1.218430.3.579.2.9 00 1993 Unknown [id number] 2.16.840.1.665014.3.579.2.9 02 1993 Unknown [id number] 2.16.840.1.218451.3.579.2.9 02 1993 Unknown [id number] 2.16.840.1.331517.3.579.2.9 02 1993 Unknown [id number] 2.16.840.1.433167.3.579.2.9 02 1993 Unknown [id number] 2.16.840.1.699544.3.579.2.9 02 1993 Unknown [id number] 2.16.840.1.444437.3.579.2.1 143 1993 Unknown [id number] 2.16.840.1.066137.3.579.2.1 143 1993 Unknown [id number] 2.16.840.1.162855.3.579.2.1 143 1993 Unknown [id number] 2.16.840.1.393652.3.579.2.1 286 1993 Unknown [id number] 2.16.840.1.908135.3.579.2.1 286 1993 Unknown [id number] 2.16.840.1.466272.3.579.2.1 259 1993 Unknown [id number] 2.16.840.1.822693.3.579.2.1 259 Unknown [id number] 2.16.840.1.759819.3.579.2.5 31 Unknown [id number] 2.16.840.1.423635.3.579.2.5 31 Unknown [id number] 2.16.840.1.191949.3.579.2.5 31 Social History Date Type Detail Facility Start: 11-30-2020 End: 11-06-2024 Tobacco smoking status TXIS Never smoker [facility] Start: 11-30-2020 End: 11-06-2024 Tobacco use and exposure Never used [facility] Start: 1995 Sex Assigned At Not on file [facility] Start: 01-11-2022 End: 10-24-2022 Exposure to SARS-CoV-2 (event) Not sure [facility] Tobacco smoking stat [facility] Tobacco smoking consumption unknown [facility] Start: 01-21-2022 End: 01-15-2024 Alcohol intake Ex-drinker (finding) [facility] Start: 1995 Sex Assigned At Female F [facility] Start: 2024 End: 11-06-2024 History of Social function [facility] Start: 2024 End: 11-06-2024 Tobacco use panel [facility] Sex Female (finding) [facility] Start: 11-06-2024 Alcoholic beverage intake Lifetime non-drinker (finding) [facility] Start: 11-06-2024 Alcohol Comment Caffeineuse Co ffee 2 cups daily [facility] Clinical Notes 11-30-2020 to 11-06-2024 Fernie Rizzo, DO - 11/06/2024 1:45 PM EDT Note Date & Type Note Facility 11-06-2024 History of Presen t illness Narrative Images from the original note were not included. Angélica Peguero 1995 Angélica Peguero is a 29 y.o. female presents with chief complaint of Right breast bx results (Breast clinic pt.) HPI: HPI Angélica was seen in the [facility] with a right breast mass that she originally found in 2022. At that time she was living in [place] and was told it was a benign tumor. On exam she was found to have a mass in both breasts, the imaging did not show any concerning findings but Angélica was concerned and wanted to proceed with biopsy of the areas. She presents for the results. SUBJECTIVE: MEDICATIONS: ALLERGIES Current Outpatient Medications Medication Instructions drospirenone-ethinyl estradiol (Yovana, Gianvi) 3-0.02 MG tablet 1 tablet, Daily escitalopram (LEXAPRO) 20 mg, Daily Allergies Allergen Reactions Latex Itching and Rash PAST MEDICAL HISTORY: SOCIAL HISTORY SURGICAL HISTORY: Past Medical History: Diagnosis Date Abnormal Pap smear of cervix 2021 Asthma (HCC) 2009 Breast lump on right side at 6 o'clock position Family history of skin cancer Ovarian cyst 2012 Social History Tobacco Use Smoking status: Never Smokeless tobacco: Never Substance Use Topics Alcohol use: Never Comment: Caffeineuse Coffee 2 cups daily Drug use: Never Past Surgical History: Procedure Laterality Date BREAST BIOPSY Bilateral 2024 SECTION, LOW TRANSVERSE 2019 & 2021 x2 FAMILY HISTORY Family History Problem Relation Name Age of Onset Diabetes Father Daryn Bishop Skin cancer Maternal Grandmother Adam Machuca Diabetes Paternal Grandfather Oliver Bishop Breast cancer Neg Hx Colon cancer Neg Hx Ovarian cancer Neg Hx Pancreatic cancer Neg Hx REVIEW OF SYMPTOMS: Review of Systems OBJECTIVE: Visit Vitals BP 110/60 Ht 5' 10 Wt 209 lb LMP 09/24/2024 (Exact Date) BMI 29.99 kg/m Smoking Status Never BSA 2.16 m Physical Exam HENT: Head: Normocephalic. Cardiovascular: Rate and Rhythm: Normal rate and regular rhythm. Pulmonary: Effort: Pulmonary effort is normal. Breath sounds: Normal breath sounds. Chest: Comments: Bilateral supraclavicular, infraclavicular, bicipital and axillary lymph nodes were found to be normal. Each breast was examined in the sitting and supine position. In the right breast she has a round 1 cm mass at the edge of the areolar 6:30 position, not fixed to the skin. In the left breast she has a 5 mm mass at the edge of the areolar 5:30 position Abdominal: General: Abdomen is flat. Bowel sounds are normal. Palpations: Abdomen is soft. Skin: General: Skin is warm and dry. Neurological: Mental Status: She is alert. ASSESSMENT AND PLAN: Assessment/Plan Diagnoses and all orders for this visit: Masses of both breasts Fibroadenoma of both breasts Angélica presents with her mother for the path results. The path of both masses was benign fibroadenoma. And it was determined to be concordant with the imaging. We discussed future follow up, she is too young to start yearly mamm's. She will self monitor the masses and if they ar enlarging will call for a reevaluation. I'll see her PRN. documented in this encounter [facility] 10-28-2024 Evaluation note Diagnosis Onset Date Resolution Breast mass, left acute October 282024 12:23pm Breast mass, right acute October 072024 12:23pm Breast mass, left acute October 302024 12:41pm Breast mass, right acute October 072024 12:41pm [facility] Work Phone: [phone] 168-709906-18-2025 Evaluation note* Diagnosis Breast lump on right side at 6 o'clock position Lump or mass in breast Breast lump on left side at 6 o'clock position Lump or mass in breast [id number] History of Present illness Narrative* PAUL Lira - 10/22/2024 1:30 PM EDT Images from the original note were not included. Reason for Appointment: Patient ID: Angélica Bishop is a 29 y.o. female who presents for No chief complaint on file. Patient presents today for Consult appointment. MEDICATIONS No current outpatient medications ALLERGIES Not on File PROBLEMS Active Ambulatory Problems Diagnosis Date Noted No Active Ambulatory Problems Resolved Ambulatory Problems Diagnosis Date Noted No Resolved Ambulatory Problems No Additional Past Medical History HISTORY PAST MEDICAL HISTORY SOCIAL HISTORY No past medical history on file. Social History Tobacco Use Smoking status: Not on file Smokeless tobacco: Not on file Substance Use Topics Alcohol use: Not on file Drug use: Not on file FAMILY HISTORY No family history on file. SURGICAL HISTORY No past surgical history on file. REVIEW OF SYSTEMS Review of Systems: Review of Systems Constitutional: Negative. HENT: Negative. Eyes: Negative. Respiratory: Negative. Cardiovascular: Negative. Gastrointestinal: Negative. Genitourinary: Negative. Musculoskeletal: Negative. Skin: Negative. Neurological: Negative. All other systems reviewed and are negative. Hematological: Negative. Endocrine: Negative. Allergic/Immunologic: Negative. OBJECTIVE Objective: Physical Exam Constitutional: Appearance: Normal appearance. She is well-developed. Genitourinary: Vulva normal. Genitourinary Comments: Rt 6 o'clock 2 x 1 mobile along areola line, non-tender Lt 4 o'clock freely mobile non-tender in areola by nipple. Breasts: Breasts are soft. Right: Mass present. Left: Mass present. Cardiovascular: Rate and Rhythm: Normal rate and regular rhythm. Pulmonary: Effort: Pulmonary effort is normal. Breath sounds: Normal breath sounds. Chest: Abdominal: General: Bowel sounds are normal. There is no distension. Palpations: Abdomen is soft. Tenderness: There is no abdominal tenderness. There is no guarding or rebound. Musculoskeletal: General: No swelling. Normal range of motion. Right lower leg: No edema. Left lower leg: No edema. Neurological: Mental Status: She is alert and oriented to person, place, and time. Skin: General: Skin is warm and dry. Psychiatric: Mood and Affect: Mood normal. Behavior: Behavior normal. Vitals and nursing note reviewed. Exam conducted with a airline flight attendant present. Vitals: There is no height or weight on file to calculate BMI. BP: No LMP recorded. ASSESSMENT & PLAN ICD-10-CM 1. Breast lump on right side at 6 o'clock position N63.15 lower side of breast 2. Breast lump on left side at 6 o'clock position N63.25 under nipple Patient presents to office today to assess bilateral breast lumps. Patient voiced that she has had a right breast lump since 2022 and it feels as though it has become bigger. Patient stated she has now noticed a lump on her left breast as well. Advised patient after breast exam that Diagnostic Mammogram with breast ultrasounds if needed will be ordered and sent to [facility]. Patient given Keflex for sebaceous cyst. Patient given orders for diagnostic mammogram and will schedule Annual Appointment prior to leaving office. Documented by Amparo Valles LPN on behalf of: PAUL Lira documented in this [facility] [id number] History of Present illness Narrative* Silvia Chong MD - 2024 3:30 PM EDT Angélica Peguero is a 28 y.o.female. Patient's last menstrual period was 01/07/2024 (exact date).. She presents for consult for ablation with tubal or hysterectomy. Patient reports her periods are very irregular and heavy, while on OCPs. Pt states she has been experiencing lower abdominal pain and has been having vaginal bleeding for the last 3 weeks. Pt is on control. Pt has hx of ovarian cyst and her 2 cousin and aunt has hx of ovarian cancer. Pt states her last ultrasound was when she was . States has been on control since she was 11 yrs old. Current contraception:oral contraceptives (estrogen/progesterone) OB History 2 Para 2 Term 2 AB Living 2 SAB IAB Ectopic Multiple Live Births 2 MEDICAL HX Past Medical History: Diagnosis Date Anxiety Depression SURGICAL HX Past Surgical History: Procedure Laterality Date SECTION SECTION FAMILY HX Family History Problem Relation Age of Onset Cervical cancer Maternal cousin Cervical cancer Maternal cousin MEDS Current Outpatient Medications Medication Sig Dispense Refill escitalopram (LEXAPRO) 10 mg tablet Take 1 tablet (10 mg total) by mouth in the morning. No current facility-administered medications for this visit. ALLERGIES No Known Allergies Review of Systems Review of Systems Objective LMP 01/07/2024 (Exact Date) Physical Exam BP 124/72 Ht 177.8 cm (5' 10 ) Wt 95.1 kg (209 lb 9.6 oz) LMP 01/07/2024 (Exact Date) BMI 30.07 kg/m Physical Exam GEN AAOX3, NAD HEENT UNREMARKABLE HEART RRR LUNGS CTAB ABD BENIGN, OBESE, NTND PELVIS: DEFERRED RECTAL DEFERRED EXTREM NO CCE, NO CALF TENDERNESS Assessment/Plan: DUB ON VERONICA DESIRES NO FUTURE CHILDBEARING UNDERGOING DIVORCE FAMILY MEDICAL HISTORY OF OVARIAN CANCER IN 2 COUSINS RECOMMEND BRCA TESTING DUB EVALUATION DUB LABS PELVIC SONO RETURN TO OFFICE FOR EMB AND HYSTEROSCOPY PATIENT IS STRONGLY COUNSELED TO CONSIDER GENETIC TESTING INFORMATION DISTRIBUTED PATIENT COUNSELED EXTENSIVELY ALL QUESTIONS ANSWERED TIME SPENT COUNSELING EQUALS 40 MINUTES Discussed with the pt about possible causes of her symptoms and possible risks. Discussed about further plan of care including ultrasound, hysteroscopy, lab works and about their risks and benefits. Discussed about possible control options including DEPO shots and IUD. Recommended to pt doing genetic testing. Recommended to take Motrin prior to hysteroscopy. MD LESLIE PRADO, [facility] Miriam Cortesbajuan 02/05/24 1619 documented [facility] History of Present illness Narrative* Candy Puckett, [employer] - 01/15/2024 2:30 PM EDT Angélica Peguero is a 28 y.o.female. LMP: 01/07/2024 which was a week early,it lasted 7 days and now she is spotting lightly. She presents for irregular bleeding. Pt reports periods have been regular every 28-30 days, lasting 4 days. Patient reports pain a 9/10 on pain scale that started around labor day weekend. Patient reports she was changing her super plus tampon every 1-2 hours. She is sexually active w/male partner over labor day weekend w/out condom. She has been on OCP since 2021. Shedenies missed dosing. She has a history of ovarian cysts which began in 2008. She relates that since she started taking OCP, she has been getting ovarian cysts less frequently. She relates the pain is stabbing in nature and is relieved by lying down. Standing and walking makes it worse. She has nottaken any medication for the pain. She declines STI testing. Last PAP was Feb. Of last yr. She reports she had an abnormal PAP when she was . She has not had any surgical procedures to her cervix. Current contraception:oral contraceptives (estrogen/progesterone) OB History No obstetric history on file. MEDICAL HX No past medical history on file. SURGICAL HX No past surgical history on file. FAMILY HX No family history on file. MEDS No current outpatient medications on file. No current facility-administered medications for this visit. ALLERGIES Not on File Review of Systems Constitutional: Negative for chills and fever. Gastrointestinal: Positive for abdominal pain. Negative for abdominal distention, blood in stool, constipation, diarrhea, nausea and vomiting. Genitourinary: Positive for dyspareunia. Negative for difficulty urinating, dysuria, frequency, urgency and vaginal discharge. Objective BP 122/64 Ht 177.8 cm (5' 10 ) Wt 92.8 kg (204 lb 9.6 oz) LMP 01/07/2024 (Exact Date) BMI 29.36 kg/m Physical Exam Vitals and nursing note reviewed. Constitutional: General: She is not in acute distress. Appearance: She is not ill-appearing, toxic-appearing or diaphoretic. HENT: Head: Normocephalic and atraumatic. Eyes: General: No scleral icterus. Neck: Thyroid: No thyroid mass, thyromegaly or thyroid tenderness. Cardiovascular: Rate and Rhythm: Normal rate and regular rhythm. Heart sounds: Normal heart sounds. Pulmonary: Effort: Pulmonary effort is normal. Breath sounds: Normal breath sounds. Abdominal: General: There is no distension. Palpations: Abdomen is soft. There is no mass. Tenderness: There is abdominal tenderness. There is no right CVA tenderness, left CVA tenderness, guarding or rebound. Hernia: No hernia is present. Comments: LLQ w/palpation and w/out palpation Musculoskeletal: Cervical back: Neck supple. No rigidity or tenderness. Lymphadenopathy: Cervical: No cervical adenopathy. Skin: General: Skin is warm and dry. Neurological: General: No focal deficit present. Mental Status: She is alert. Psychiatric: Mood and Affect: Mood normal. Behavior: Behavior normal. Thought Content: Thought content normal. Judgment: Judgment normal. Assessment/Plan: Angélica was seen today for abnormal bleeding. Diagnoses and all orders for this visit: Left lower quadrant abdominal pain - Ultrasound pelvic with transvaginal; Future Advised to continue OCP Questions answered r/t possible desire for hysterectomy, I.e. risks of vaginal shortening, w/removal of cervix and possible painful intercourse, possible bladder prolapse, etc. Work note provided for today F/U w/physician for evaluation for hysterectomy vs. Ablation/BLTL Recommended condom use Discussed use of ibuprofen at 800mg q 8hr. X2-3days or use of OTC tylenol as directed and to go to the ED for unresolved pain F/U Feb. For annual exam LESLIE CAAL, LEI Puckett APRN, BRITTA Puckett APRN-BRITTA 01/15/24 1555 documented in this encounterRiverview Health InstituteWooop Forest View [id number] Miscellaneous Notes* Note - Chuyita Verdin RN - 01/23/2022 10:45 AM EDT This note was copied from a baby's chart. Lc into room to evaluate bf progress. Mom sitting up in bed with FOB near bedside. Mom reports she became scared overnight when had weight loss 7.3%, so she decided to initiate formula supplementation. Mom also states she feels more comfortable to go home and exclusive pump and bottle-feed her ebm. She states she prefers to know how much milk her is receiving and remains worried that is not transferring milk well at breast. Mom reports is using me as a pacifier . Reviewed how to determine if effective milk transfer at breast as well as the difference between active and passive feeding. Encouraged mom to consider allowing opportunity to nurse at breast dire ctly to help stimulate her breasts more effectively as long as showing signs of active feeding and effective milk transfer. Recommended she pump breasts after latch attempts until infant returns to specialist physicians for follow up weight check. Educated her on benefits of latching to direct breastfeed and how this can help to stimulate milk production. Recommended hands-on pumping as well as when direct . Instructed on breast massage/compression to encourage more transfer of milk.Mom has a breast pump at home. Pt has outpatient information for f/u if needed, including help linephone number and support group day and time. Mom declines other needs at this time. Informed of LC a vailability today and encouraged her to call prn needs prior to DC to home. * Hospital Course - Marlene Archibald DO - 01/23/2022 8:29 AM EDT 26 y.o. at 37w4d presented to [facility] for contractions. She was planning a repeat section. records were reviewed. The risks/benefits/alternatives were discussed with the patientand the informed consent was signed. She was taken to the OR where she underwent a RLTCS under spinal anesthesia w/o complications. See operative report for details. Postoperatively she did well. Her hemoglobin stabilized at 9.5 (from 10.9). She met all discharge milestones including oral pain control, tolerating regular diet, ambulation, spontaneous voiding, andreturn of bowel function. She was stable for discharge to home on POD #2 and will follow up with Dr. Tubbs in 1 week for incision check. * Subjective & Objective - Donna Ha DO - 01/23/2022 5:09 AM EDT Patient seen and examined. Doing well. Pain controlled with medication. Lochia appropriate and decreasing. Ambulating without difficulty. Tolerating food and drink PO. Voiding spontaneously. Passing flatus. Pt is bottlefeeding. * Note - Chuyita Verdin RN - 01/22/2022 4:15 PM EDT LC into room to assist with feed per mom's request. SGA with jaundice and CISCO+, no phototherapy at this time. Reviewed feeding Plan and Goals: exclusive . 1) offer breast on demand with cues of hunger 2) pump both breasts with symphony pump x 15min after direct , can offer any expressedmilk via syringes with finger feeding. History: P2, no success with bf 1st child. Education: Reviewed basic education. Encouraged her to offer breast on demand with cues of hunger, aiming to nurse at least 8 times q 24hrs. Reviewed feeding plans. Exam: bilateral breasts dense, nipples erect, but small diameter. Pt has been using a #16mm nipple shield and having some success using shield with feedings. opens mouth wide, but she keeps tongue up in back. Latch: Infant latching easier on left side in cross-cradle, but pt states she is needing help on right side. LC suggested latching using football hold on right to deepen, and pt agreeable so we practiced this together. Infant suckle is rhythmic and colostrum visible in shield with audible swallows. Pump: reviewed pumping instructions with her. Assisted with washing pump parts for her to use now after dbf. Informed of LC availability and encouraged calls to LC prn needs and for latch support. Reviewed plan with primary RN as well. * Note - Chuyita Verdin RN - 01/22/2022 10:50 AM EDT This note was copied from a baby's chart. LC into room to assist with feed per mom's request. SGA with jaundice and CISCO+, no phototherapy at this time. Reviewed feeding Plan and Goals: exclusive . 1) offer breast on demand with cues of hunger History: P2, no success with bf 1st child. Education: Educated on importance of hand expression of colostrum as well as pumping to offer any ebm. Educated on feeding cues, feeding patterns and SGA implications. Instructed on use of nipple shield and encouraged to f/u with lc or specialist physicians closely while using shield to ensure adequate milk production as well as transfer of milk and weight gain in . Instructed on risks of mastitis related to potential for inadequate emptying of breast. Exam: bilateral breasts dense, nipples erect, but small diameter. Pt has been using a #16mm nipple shield and having some success using shield with feedings. Infant opens mouth wide, but she keeps tongue up in back. Latch: we practiced latch using cross-cradle on left areola using shield. Pt assisted with improving positioning using asymmetric latch. passive, sleepy and will not suckle. Pump: Setup Miirahony pump and instructed on use as well as pumping schedule. Recommended she pump both breasts x 15min per pump session using initiate mode of the breast pump. Recommended she pump after dbf attempts and then can offer any ebm via syringes. Pt has a mywaves personal pump at home. Sized her for #21mm flanges for pump. Informed of LC availability and encouraged calls to LC prn needs and for latch support. Reviewed plan with primary RN as well. * Plan of Care - Jeanna Goins RN - 01/22/2022 6:42 AM EDT Problem: Actual or potential alteration in health Goal: Absence of healthcare acquired conditions Outcome: Met Goal: Knowledge of Interdisciplinary Plan of Care Outcome: Completed Goal: Knowledge of Enviroment Outcome: Completed Problem: Pain Goal: Manage acute pain Outcome: Met Goal: Achievement of comfort function goal Outcome: Met Problem: Venous Thromboembolism, Risk of Goal: Absence of venous thromboembolism Outcome: Met Problem: Plan for Discharge Goal: Knowledge of discharge plan and instructions Outcome: Partially Met * Assessment & Plan Note - Marlene Archibald DO - 01/22/2022 3:07 AM EDTAssociated Problem(s): care following delivery POD # 2 s/p RLTCS - Mother and baby doing well - Hemodynamically stable (Hgb 10.9 -> 9.5) - Pain controlled on current regimen - ; services prn - Meeting milestones - Discharge today, followup in 1 week * Note - Yas Rodgers RN - 01/21/2022 11:30 PM EDT This note was copied from a baby's chart. LC to bedside to assist with feeding. Mother and bedside RN attempting to latch infant with 16mm shield at right breast in cross-cradle hold. Infant latches, but would not sustain suck, residue of colostrum in shield. 4.6 ml of ebm expressed and finger fed to infant via syringe. Mother encouraged to call out for assistance as needed with next feeding. * Note - Yas Rodgers RN - 01/21/2022 8:15 PM EDT This note was copied from a baby's chart. LC to bedside to assess bf progress. Mother reports difficultly latching infant at delivery. InfantPlaced in cross-cradle hold at right breast. Attempts made to latch infant. opened mouth wide, but would not latch. Attempted to use biscuit hold and coax with expressed colostrum. placed skin to skin. Hand expression technique reviewed and several mls of colostrum expressed. Infant sh owing cues of hunger after hand expression performed, another attempt made to latch at rightbreast using ebm as coaxer and 16 mm shield. Infant latched, but would not sustain suck despite musa stimulation. finger fed 5ml of ebm via syringe. Reviewed with mother feeding on demand, infant stomach size, normal output, normal weight loss and gain. Mother encouraged to feed on demandand to call out for assistance as needed. * L&D Delivery Note - Cayla Tubbs DO - 01/21/2022 3:15 PM EDT Section Delivery Note Diagnosis: Principal Problem: History of delivery Mother's Information Delivery Blood Loss 01/21/22 1500 - 01/21/22 1515 Quantitative Blood Loss - Delivery (mL) Hospital Encounter 480 mL Total 480 mL Joy Peguero [[id number]] Delivery Anesthesia Method: Spinal Operative Delivery Forceps attempted?: No Vacuum extractor attempted?: No [place] Presentation Presentation: Vertex Information date/time: 01/21/22 1455 Gender: Female Delivery type: , Low Transverse Delivery location: OB Unit Initial disposition: Routine NB Care Details: Trial of labor?: No categorization: Repeat priority: Unscheduled Delivery Providers Delivering clinician: Cayla Tubbs DO Other personnel: Provider Role Cayla Tubbs DO Covering Attending Marlene Archibald, Resident Front Office Manager Josse Orozco, cardiopulmonary supervisor Nurse Ute Lopez, [place] Registered Nurse Delivery Assist Nurse Practitioner Cord Vessels: 3 vessels Complications: None Delayed cord clamping?: Yes Cord clamped date/time: 01/21/20221455 Cord blood obtained?: Yes Cord segment obtained?: Yes Gases sent?: Yes Stem cell collection (by Provider)?: No Placenta Date/time: 01/21/20221456 Removal: Manual removal Appearance: Intact Disposition: Refrigerator [place] Apgars No data filed Measurements Weight: Lacerations Episiotomy: None Perineal lacerations: None Other Lacerations: no non-perineal laceration Repair suture: None Other Procedures Procedures: None * Plan of Care - Josse Orozco RN - 01/21/2022 1:50 PM EDT Reviewed POC. Will adapt prn documented in this [id number] Obstetrics Note* Note - Chuyita Verdin RN - 01/23/2022 10:45 AM EDT This note was copied from a baby's chart. Lc into room to evaluate bf progress. Mom sitting up in bed with FOB near bedside. Mom reports she became scared overnight when infant had weight loss 7.3%, so she decided to initiate formula supplementation. Mom also states she feels more comfortable to go home and exclusive pump and bottle-feed her ebm. She states she prefers to know how much milk her is receiving and remains worried that is not transferring milk well at breast. Mom reports is using me as a pacifier . Reviewed how to determine if effective milk transfer at breast as well as the difference between active and passive feeding. Encouraged mom to consider allowing opportunity to nurse at breast dire ctly to help stimulate her breasts more effectively as long as showing signs of active feeding and effective milk transfer. Recommended she pump breasts after latch attempts until returns to specialist physicians for follow up weight check. Educated her on benefits of latching to direct breastfeed and how this can help to stimulate milk production. Recommended hands-on pumping as well as when direct . Instructed on breast massage/compression to encourage more transfer of milk.Mom has a breast pump at home. Pt has outpatient information for f/u if needed, including help linephone number and support group day and time. Mom declines other needs at this time. Informed of LC a vailability today and encouraged her to call prn needs prior to DC to home. [id number] Hospital Note* Hospital Course - Marlene Dragan, - 01/23/2022 8:29 AM EDT 26 y.o. at 37w4d presented to [facility] for contractions. She was planning a repeat section. records were reviewed. The risks/benefits/alternatives were discussed with the patientand the informed consent was signed. She was taken to the OR where she underwent a RLTCS under spinal anesthesia w/o complications. See operative report for details. Postoperatively she did well. Her hemoglobin stabilized at 9.5 (from 10.9). She met all discharge milestones including oral pain control, tolerating regular diet, ambulation, spontaneous voiding, andreturn of bowel function. She was stable for discharge to home on POD #2 and will follow up with Dr. Tubbs in 1 week for incision check. [id number] Hospital course Narrative* Marlene Archibald DO - 01/23/2022 8:25 AM EDT DISCHARGE SUMMARY Patient: Angélica Peguero Date of : 1995 Site: [facility] Family Provider: Physician No Admit Date: 01/21/2022 Discharge Date/Time: 01/23/22 Morning Disposition: stable to home Clinical Summary Hospital Course: 26 y.o. at 37w4d presented to [facility] for contractions. She was planning a repeat section. records were reviewed. The risks/benefits/alternatives were discussed with the patientand the informed consent was signed. She was taken to the OR where she underwent a RLTCS under spinal anesthesia w/o complications. See operative report for details. Postoperatively she did well. Her hemoglobin stabilized at 9.5 (from 10.9). She met all discharge milestones including oral pain control, tolerating regular diet, ambulation, spontaneous voiding, andreturn of bowel function. She was stable for discharge to home on POD #2 and will follow up with Dr. Tubbs in 1 week for incision check. Discharge Diagnoses: care following delivery Assessment & Plan POD # 2 s/p RLTCS - Mother and baby doing well - Hemodynamically stable (Hgb 10.9 -> 9.5) - Pain controlled on current regimen - ; services prn - Meeting milestones - Discharge today, followup in 1 week Surgeries: 01/21/22 SECTION Consults: No orders of the defined types were placed in this encounter. Allergies: Patient has no known allergies. Discharge Diet: healthy home diet Condition: stable Discharge Medications: Discharge Medications New Medications Details oxyCODONE 5 MG immediate release tablet Commonly known as: ROXICODONE Take 1 (one) tablet (5 mg total) by mouth every 6 (six) hours as needed for pain . Quantity: 5 tablet Stopped Medications vitamin with Ca-Iron-FA 27-1 mg Tab Physician(s) Family Provider: Physician No, Phone: None Address: [facility] Follow Up: Cayla Tubbs, [address] [facility] [address] Schedule an appointment as soon as possible for a visit in 1 week(s) Please make appointment in 1 week for incision check Additional Information: none Patient instructions, including activity, were given to the patient/family at discharge. Please seethe After Visit Summary in the electronic medical record for details. Time spent on discharge: < 30 minutes Completed by: Marlene Archibald DO on 01/23/22, 8:25 AM documented in this [id number] History of Present illness Narrative* Donna Ha DO - 01/23/2022 5:10 AM EDT Progress Note Assessment/Plan: 26 y.o. at 37w4d s/p RLTCS care following delivery Assessment & Plan POD # 2 s/p RLTCS - Mother and baby doing well - VSS - Hemodynamically stable (Hgb 10.9 -> 9.5) - Pain controlled on current regimen - ; services prn - Regular diet - DVT Prophylaxis: SCDs, IS, Encouraged ambulation - Continue routine postoperative care - Would like to go home, meeting all postop milestones Subjective: Patient seen and examined. Doing well. Pain controlled with medication. Lochia appropriate and decreasing. Ambulating without difficulty. Tolerating food and drink PO. Voiding spontaneously. Passing flatus. Pt is but thinking about supplementing. Would like to go home. Review of Systems - The following ROS was otherwise negative, except as noted in the HPI: constitutional, respiratory, cardiovascular, gastrointestinal, genitourinary Objective: BP 107/70 (BP Location: Left arm, Patient Position: Lying) Pulse 76 Temp 98 F (36.7 C) (Oral) Resp 15 Ht 5' 10 (1.778 m) Wt 100.2 kg (221 lb) SpO2 97% Unknown BMI 31.71kg/m General: Alert, well appearing, no acute distress Abdomen: Soft, appropriately tender to palpation, fundus firm and below umbilicus, non-distended Incision: Pfannenstiel, Appears c/d/i Extremities: Non-tender to palpation, no erythema, neg edema Labs: Results from last 7 days Lab Units 01/22/22 0631 01/21/22 1317 HGB g/dL 9.5* 10.9* PLT K/mcL 184 215 Will discuss with attending Donna Ha DO, PGY-3 Obstetrics and Gynecology Associated attestation - Marce Dutta MD - 01/23/2022 10:49 AM EDT Seen and examined. Agree w/ resident note. Agree w hx, PE, and plan for post care and discharge , instructed * Marlene Archibald DO - 01/22/2022 3:07 AM EDT Progress Note Assessment/Plan: 26 y.o. at 37w4d s/p RLTCS care following delivery Assessment & Plan 26 y.o. 37w4d S/P RLTCS on 01/21 POD1 - Patient doing well - Pain controlled on jameson motrin/tylenol; PRN oxy - Hgb pending (from 10.9) - Patient is breast feeding, consult prn - Encourage ambulation and IS use - Reports bowel function - Anderson in place, awaiting spontaneous void - Tolerating regular diet without N/V - Mood stable - Contraception: to discuss with private attending - Continue routine care Subjective: Patient seen and examined this AM. Doing well. Pain well-controlled on current regimen. Lochia decreasing appropriately. Tolerating oral diet without N/V. Not yet ambulating, anderson in place. Reports flatus. Denies CP/SOB/calf pain/headache/visual changes/RUQ pain. Notes mild itching, declines medication. without difficulty. Will discuss contraception with Dr. Tubbs. Review of Systems - The following ROS was otherwise negative, except as noted in the HPI: constitutional, respiratory, cardiovascular, gastrointestinal, genitourinary Objective: BP 105/68 Pulse 75 Temp 97.4 F (36.3 C) (Oral) Resp 16 SpO2 97% Unknown General: Alert, well appearing, no acute distress Abdomen: Soft, appropriately tender to palpation, fundus firm and below umbilicus, non-distended Incision: Pfannenstiel, covered w/ [place], no shadowing Extremities: Non-tender to palpation, no erythema, neg edema Labs: Results from last 7 days Lab Units 01/21/22 1317 HGB g/dL 10.9* PLT K/mcL 215 Will discuss with attending Associated attestation - Marce Dutta MD - 01/22/2022 1:19 PM EDT Seen and examined. Agree w/ resident note. Agree w hx, PE, and plan for post care Hgb 9.5 documented in this [id number] Evaluation note* Subjective & Objective - Donna Ha DO - 01/23/2022 5:09 AM EDT Patient seen and examined. Doing well. Pain controlled with medication. Lochia appropriate and decreasing. Ambulating without difficulty. Tolerating food and drink PO. Voiding spontaneously. Passing flatus. Pt is bottlefeeding. [id number] Obstetrics Note* Note - Chuyita Verdin RN - 01/22/2022 4:15 PM EDT LC into room to assist with feed per mom's request. SGA infant with jaundice and CISCO+, no phototherapy at this time. Reviewed feeding Plan and Goals: exclusive . 1) offer breast on demand with cues of hunger 2) pump both breasts with symphony pump x 15min after direct , can offer any expressedmilk via syringes with finger feeding. History: P2, no success with bf 1st child. Education: Reviewed basic education. Encouraged her to offer breast on demand with cues of hunger, aiming to nurse at least 8 times q 24hrs. Reviewed feeding plans. Exam: bilateral breasts dense, nipples erect, but small diameter. Pt has been using a #16mm nipple shield and having some success using shield with feedings. Infant opens mouth wide, but she keeps tongue up in back. Latch: Infant latching easier on left side in cross-cradle, but pt states she is needing help on right side. LC suggested latching using football hold on right to deepen, and pt agreeable so we practiced this together. Infant suckle is rhythmic and colostrum visible in shield with audible swallows. Pump: reviewed pumping instructions with her. Assisted with washing pump parts for her to use now after dbf. Informed of LC availability and encouraged calls to LC prn needs and for latch support. Reviewed plan with primary RN as well. [id number] Obstetrics Note* Note - Chuyita Verdin RN - 01/22/2022 10:50 AM EDT This note was copied from a baby's chart. LC into room to assist with feed per mom's request. SGA infant with jaundice and CISCO+, no phototherapy at this time. Reviewed feeding Plan and Goals: exclusive . 1) offer breast on demand with cues of hunger History: P2, no success with bf 1st child. Education: Educated on importance of hand expression of colostrum as well as pumping to offer any ebm. Educated on feeding cues, feeding patterns and SGA implications. Instructed on use of nipple shield and encouraged to f/u with lc or specialist physicians closely while using shield to ensure adequate milk production as well as transfer of milk and weight gain in . Instructed on risks of mastitis related to potential for inadequate emptying of breast. Exam: bilateral breasts dense, nipples erect, but small diameter. Pt has been using a #16mm nipple shield and having some success using shield with feedings. opens mouth wide, but she keeps tongue up in back. Latch: we practiced latch using cross-cradle on left areola using shield. Pt assisted with improving positioning using asymmetric latch. Infant passive, sleepy and will not suckle. Pump: Setup Miirahony pump and instructed on use as well as pumping schedule. Recommended she pump both breasts x 15min per pump session using initiate mode of the breast pump. Recommended she pump after dbf attempts and then can offer any ebm via syringes. Pt has a mywaves personal pump at home. Sized her for #21mm flanges for pump. Informed of LC availability and encouraged calls to LC prn needs and for latch support. Reviewed plan with primary RN as well. [id number] Note* Plan of Care - Jeanna Goins RN - 01/22/2022 6:42 AM EDT Problem: Actual or potential alteration in health Goal: Absence of healthcare acquired conditions Outcome: Met Goal: Knowledge of Interdisciplinary Plan of Care Outcome: Completed Goal: Knowledge of Enviroment Outcome: Completed Problem: Pain Goal: Manage acute pain Outcome: Met Goal: Achievement of comfort function goal Outcome: Met Problem: Venous Thromboembolism, Risk of Goal: Absence of venous thromboembolism Outcome: Met Problem: Plan for Discharge Goal: Knowledge of discharge plan and instructions Outcome: Partially Met [id number] Evaluation + Plan note* Assessment & Plan Note - Marlene Archibald DO - 01/22/2022 3:07 AM EDTAssociated Problem(s): care following delivery POD # 2 s/p RLTCS - Mother and baby doing well - Hemodynamically stable (Hgb 10.9 -> 9.5) - Pain controlled on current regimen - ; services prn - Meeting milestones - Discharge today, followup in 1 week [id number] Obstetrics Note* Note - Yas Rodgers RN - 01/21/2022 11:30 PM EDT This note was copied from a baby's chart. LC to bedside to assist with feeding. Mother and bedside RN attempting to latch infant with 16mm shield at right breast in cross-cradle hold. latches, but would not sustain suck, residue of colostrum in shield. 4.6 ml of ebm expressed and finger fed to via syringe. Mother encouraged to call out for assistance as needed with next feeding. [id number] Obstetrics Note* Note - Yas Rodgers RN - 01/21/2022 8:15 PM EDT This note was copied from a baby's chart. LC to bedside to assess bf progress. Mother reports difficultly latching infant at delivery. InfantPlaced in cross-cradle hold at right breast. Attempts made to latch infant. Infant opened mouth wide, but would not latch. Attempted to use biscuit hold and coax with expressed colostrum. Infant placed skin to skin. Hand expression technique reviewed and several mls of colostrum expressed. Infant sh owing cues of hunger after hand expression performed, another attempt made to latch at rightbreast using ebm as coaxer and 16 mm shield. Infant latched, but would not sustain suck despite musa stimulation. Infant finger fed 5ml of ebm via syringe. Reviewed with mother feeding on demand, stomach size, normal output, normal weight loss and gain. Mother encouraged to feed on demandand to call out for assistance as needed. [place] [id number] Labor and delivery summary note* L&D Delivery Note - Cayla Tubbs DO - 01/21/2022 3:15 PM EDT Section Delivery Note Diagnosis: Principal Problem: History of delivery Mother's Information Delivery Blood Loss 01/21/22 1500 - 01/21/22 1515 Quantitative Blood Loss - Delivery (mL) Hospital Encounter 480 mL Total 480 mL Marielena Baby Girl Angélica [[id number]] Delivery Anesthesia Method: Spinal Operative Delivery Forceps attempted?: No Vacuum extractor attempted?: No Presentation Presentation: Vertex Information date/time: 01/21/22 145 Gender: Female Delivery type: , Low Transverse Delivery location: OB Unit Initial disposition: Routine NB Care Details: Trial of labor?: No categorization: Repeat priority: Unscheduled Delivery Providers Delivering clinician: Cayla Tubbs DO Other personnel: Provider Role Cayla Tubbs DO Covering Attending Marlene Archibald DO Resident Front Office Manager Josse Orozco RN Delivery Nurse Ute Lopez RN Registered Nurse Delivery Assist Nurse Practitioner Cord Vessels: 3 vessels Complications: None Delayed cord clamping?: Yes Cord clamped date/time: 01/21/20221455 Cord blood obtained?: Yes Cord segment obtained?: Yes Gases sent?: Yes Stem cell collection (by Provider)?: No Placenta Date/time: 01/21/20221456 Removal: Manual removal Appearance: Intact Disposition: Refrigerator Apgars No data filed [place] Measurements Weight: Lacerations Episiotomy: None Perineal lacerations: None Other Lacerations: no non-perineal laceration Repair suture: None Other Procedures Procedures: None [id number] Note* Plan of Care - Josse Orozco RN - 01/21/2022 1:50 PM EDT Reviewed POC. Will adapt prn [id number] History and physical note* Cayla Tubbs, DO - 01/21/2022 1:38 PM EDT HISTORY AND PHYSICAL UPDATE Assessment/Plan: Active Problems: * No active hospital problems. * 1. IUP @ 37w4d week admitted for -- pt w/ progressive pain and ctxns past 4 days, now w/ severe ERIC/prior scar pain -- concern for early labor and scar comprimise -- plan for OR -- FHTs currently reassuring Subjective: Chief Complaint Patient presents with Pelvic Pain Pt states continuous pelvic pain and lower abd. Pain. Pt. States DFM as well, Pt uncomfortable. Denies LOF or vaginal bleeding. Angélica Peguero is a 26 y.o. female with Estimated Date of Delivery: 02/07/22 at 37w4d gestation who is being admitted for . Her current obstetrical history is significant for prior . Patient reports ctxns and progressive severe ERIC/prior scar pain, worse past 4 days. Movement: normal. The following past medical history, Medical/Surgical/Family/Social history, Medications and Allergies, and Physical Exam have been reviewed and are part of the record and are unchanged Heart Rate: [92] 92 Resp: [16] 16 Dilation - PW: 1 Effacement (%) - PW: 40 Station - PW: -4 OB Examiner - PW: Shirley IZQUIERDO reactive TOCO: q 3-4min Gen: A&Ox3. Visibly uncomfortable Ab: Soft. ND. Gravid. ERIC TTP w/ pain directly over prior scar No visits with results within 1 Day(s) from this visit. Latest known visit with results is: Admission on 01/12/2022, Discharged on 01/12/2022 Component Date Value Spec Grav, UA 01/12/2022 1.015 pH, UA 01/12/2022 7.5 (H) Protein, UA 01/12/2022 Negative Glucose, UA 01/12/2022 Negative Ketones, UA 01/12/2022 Negative Bilirubin, UA 01/12/2022 Negative Urobilinogen, UA 01/12/2022 0.2 Blood, UA 01/12/2022 Negative Nitrite, UA 01/12/2022 Negative Leukocyte Esterase, UA 01/12/2022 Trace (A) Risks, benefits, alternatives and possible complications have been discussed in detail with the patient. Pre-admission, admission, and post admission procedures and expectations were discussed in detail. All questions answered, all appropriate consents will be signed at the Hospital. Admission is for Proceed w/ RLTCS . Cayla Tubbs DO [facility] Work Phone: [phone] 242-104009-16-2022 History and physical note* Cayla Tubbs DO - 01/21/2022 1:38 PM EDT HISTORY AND PHYSICAL UPDATE Assessment/Plan: Active Problems: * No active hospital problems. * 1. IUP @ 37w4d week admitted for -- pt w/ progressive pain and ctxns past 4 days, now w/ severe ERIC/prior scar pain -- concern for early labor and scar comprimise -- plan for OR -- FHTs currently reassuring Subjective: Chief Complaint Patient presents with Pelvic Pain Pt states continuous pelvic pain and lower abd. Pain. Pt. States DFM as well, Pt uncomfortable. Denies LOF or vaginal bleeding. Angélica Peguero is a 26 y.o. female with Estimated Date of Delivery: 02/07/22 at 37w4d gestation who is being admitted for . Her current obstetrical history is significant for prior . Patient reports ctxns and progressive severe ERIC/prior scar pain, worse past 4 days. Movement: normal. The following past medical history, Medical/Surgical/Family/Social history, Medications and Allergies, and Physical Exam have been reviewed and are part of the record and are unchanged Heart Rate: [92] 92 Resp: [16] 16 Dilation - PW: 1 Effacement (%) - PW: 40 Station - PW: -4 OB Examiner - STEPHAN: Shirley IZQUIERDO reactive TOCO: q 3-4min Gen: A&Ox3. Visibly uncomfortable Ab: Soft. ND. Gravid. ERIC TTP w/ pain directly over prior scar No visits with results within 1 Day(s) from this visit. Latest known visit with results is: Admission on 01/12/2022, Discharged on 01/12/2022 Component Date Value Spec Grav, UA 01/12/2022 1.015 pH, UA 01/12/2022 7.5 (H) Protein, UA 01/12/2022 Negative Glucose, UA 01/12/2022 Negative Ketones, UA 01/12/2022 Negative Bilirubin, UA 01/12/2022 Negative Urobilinogen, UA 01/12/2022 0.2 Blood, UA 01/12/2022 Negative Nitrite, UA 01/12/2022 Negative Leukocyte Esterase, UA 01/12/2022 Trace (A) Risks, benefits, alternatives and possible complications have been discussed in detail with the patient. Pre-admission, admission, and post admission procedures and expectations were discussed in detail. All questions answered, all appropriate consents will be signed at the Hospital. Admission is for Proceed w/ RLTCS . Cayla Tubbs DO documented in this [id number] Instructions* Patient Instructions* Sheyla Tran MD - 11/30/2020 2:50 PM EDT Images from the original note were not included. Bronchitis: Care Instructions Your Care Instructions Bronchitis is inflammation of the bronchial tubes, which carry air to the lungs. The tubes swell and produce mucus, or phlegm. The mucus and inflamed bronchial tubes make you cough. You may have trouble breathing. Most cases of bronchitis are caused by viruses like those that cause colds. Antibiotics usually do not help and they may be harmful. Bronchitis usually develops rapidly and lasts about 2 to 3 weeks in otherwise healthy people. Follow-up care is a de leon part of your treatment and safety. Be sure to make and go to all appointments, and call your doctor if you are having problems. It's also a good idea to know your test resultsand keep a list of the medicines you take. How can you care for yourself at home? Take all medicines exactly as prescribed. Call your doctor if you think you are having a problem with your medicine. Get some extra rest. Take an orde-jbo-plciaxh pain medicine, such as acetaminophen (Tylenol), ibuprofen (Advil, Motrin),or naproxen (Aleve) to reduce fever and relieve body aches. Read and follow all instructions on thelabel. Do not take two or more pain medicines at the same time unless the doctor told you to. Many pain medicines have acetaminophen, which is Tylenol. Too much acetaminophen (Tylenol) can be harmful. Take an dupa-amd-cxjtgey cough medicine to help quiet a dry, hacking cough so that you can sleep. Avoid cough medicines that have more than one active ingredient. Read and follow all instructions on the label. Do not smoke. Smoking can make bronchitis worse. If you need help quitting, talk to your doctor about stop-smoking programs and medicines. These can increase your chances of quitting for good. When should you call for help? Call 911 anytime you think you may need emergency care. For example, call if: You have severe trouble breathing. Call your doctor now or seek immediate medical care if: You have new or worse trouble breathing. You cough up dark brown or bloody mucus (sputum). You have a new or higher fever. You have a new rash. Watch closely for changes in your health, and be sure to contact your doctor if: You cough more deeply or more often, especially if you notice more mucus or a change in the color of your mucus. You are not getting better as expected. Where can you learn more? Log into your personal health record on?https://[employer]?and enter H333?in the Education box to learn more about Bronchitis: Care Instructions. Current as of: March 02, 2020 Content Version: 12.9 [employer]. Care instructions adapted under license by your healthcare professional. If you have questions about a medical condition or this instruction, always ask your healthcare professional. [employer] disclaims any warranty or liability for your use of this information. Middle Ear Fluid: Care Instructions Your Care Instructions Fluid often builds up inside the ear during a cold or allergies. Usually the fluid drains away, butsometimes a small tube in the ear, called the eustachian tube, stays blocked for months. Symptoms of fluid buildup may include: Popping, ringing, or a feeling of fullness or pressure in the ear. Trouble hearing. Balance problems and dizziness. In most cases, you can treat yourself at home. Follow-up care is a de leon part of your treatment and safety. Be sure to make and go to all appointments, and call your doctor if you are having problems. It's also a good idea to know your test resultsand keep a list of the medicines you take. How can you care for yourself at home? In most cases, the fluid clears up within a few months without treatment. You may need more tests if the fluid does not clear up after 3 months. If your doctor prescribed antibiotics, take them as directed. Do not stop taking them just because you feel better. You need to take the full course of antibiotics. When should you call for help? Call your doctor now or seek immediate medical care if: You have symptoms of infection, such as: ? Increased pain, swelling, warmth, or redness. ? Pus draining from the area. ? A fever. Watch closely for changes in your health, and be sure to contact your doctor if: You notice changes in hearing. You do not get better as expected. Where can you learn more? Log into your personal health record on?https://[employer]?and enterɿC174?in the Education box to learn more about Middle Ear Fluid: Care Instructions. Current as of: April 08, 2020 Content Version: 12.9 [employer]. Care instructions adapted under license by your healthcare professional. If you have questions about a medical condition or this instruction, always ask your healthcare professional. [employer] disclaims any warranty or liability for your use of this information. documented in this [id number] History of Present illness Narrative* Sheyla Tran MD - 11/30/2020 2:37 PM EDT PATIENT NAME: Angélica Peguero [facility] [address] [facility] [id number] : 1995 DATE OF VISIT: 11/30/2020 #: [id number] PROVIDER: Sheyla Tran MD Chief Complaint Patient presents with Cough right ear fullness x1 week, itching, irritated, drainage &cough yesterday. SUBJECTIVE 25 y.o. female presents Cough (right ear fullness x1 week, itching, irritated, drainage &cough yesterday.) Cough This is a new problem. The current episode started in the past 7 days. The problem has been unchanged. The problem occurs constantly. The cough is productive of sputum. Associated symptoms include ear congestion, ear pain (R) and nasal congestion. Pertinent negatives include no chest pain, fever, he adaches, myalgias, rash, rhinorrhea, sore throat or shortness of breath. Nothing aggravates the symptoms. She has tried nothing for the symptoms. MEDICAL ISSUES Past Medical History: Diagnosis Date Anxiety Depression There is no problem list on file for this patient. SOCIAL HISTORY Social History Socioeconomic History Marital status: Spouse name: Not on file Number of children: Not on file Years of education: Not on file Highest education level: Not on file Occupational History Not on file Tobacco Use Smoking status: Never Smoker Smokeless tobacco: Never Used Vaping Use Vaping Use: Never used Substance and Sexual Activity Alcohol use: Not on file Drug use: Not on file Sexual activity: Not on file Other Topics Concern Not on file Social History Narrative Not on file Social Determinants of Health Financial Resource Strain: Difficulty of Paying Living Expenses: Food Insecurity: Worried About Running Out of Food in the Last Year: Ran Out of Food in the Last Year: Transportation Needs: Lack of Transportation (Medical): Lack of Transportation (Non-Medical): Physical Activity: Days of Exercise per Week: Minutes of Exercise per Session: Stress: Feeling of Stress : Social Connections: Frequency of Communication with Friends and Family: Frequency of Social Gatherings with Friends and Family: Attends Confucianist Services: Active Member of Clubs or Organizations: Attends Club or Organization Meetings: Marital Status: FAMILY HISTORY History reviewed. No pertinent family history. REVIEW OF SYSTEMS Review of Systems Constitutional: Negative for fever. HENT: Positive for ear pain (R). Negative for rhinorrhea and sore throat. Eyes: Negative for visual disturbance. Respiratory: Positive for cough. Negative for shortness of breath. Cardiovascular: Negative for chest pain. Gastrointestinal: Negative for abdominal pain, diarrhea and vomiting. Genitourinary: Negative for dysuria. Musculoskeletal: Negative for myalgias. Skin: Negative for rash. Neurological: Negative for headaches. Psychiatric/Behavioral: Negative for behavioral problems. MEDICATIONS PRIOR TO VISIT No current outpatient medications on file prior to visit. No current facility-administered medications on file prior to visit. ALLERGIES/INTOLERANCES No Known Allergies OBJECTIVE Pulse 81 Temp 98.5 F (36.9 C) Wt 74.8 kg (165 lb) LMP 11/19/2020 SpO2 95% Physical Exam Constitutional: Appearance: She is well-developed. HENT: Head: Normocephalic. Right Ear: Tympanic membrane is bulging. Tympanic membrane is not erythematous. Left Ear: Tympanic membrane is bulging. Tympanic membrane is not erythematous. Nose: No mucosal edema or rhinorrhea. Mouth/Throat: Pharynx: No posterior oropharyngeal erythema. Eyes: Conjunctiva/sclera: Conjunctivae normal. Pupils: Pupils are equal, round, and reactive to light. Cardiovascular: Rate and Rhythm: Normal rate and regular rhythm. Pulses: Normal pulses. Heart sounds: Normal heart sounds. No murmur heard. Pulmonary: Effort: No respiratory distress. Breath sounds: Normal breath sounds. No wheezing, rhonchi or rales. Abdominal: General: Bowel sounds are normal. Palpations: Abdomen is soft. There is no mass. Tenderness: There is no abdominal tenderness. Musculoskeletal: General: Normal range of motion. Cervical back: Normal range of motion. Lymphadenopathy: Cervical: No cervical adenopathy. Skin: Findings: No rash. Neurological: Mental Status: She is alert. Cranial Nerves: No cranial nerve deficit. Deep Tendon Reflexes: Reflexes normal. PROCEDURE Procedures Results No results found for this or any previous visit (from the past 168 hour(s)). ASSESSMENT/PLAN (expressed as patient instructions): 1. Bronchitis azithromycin (Zithromax) 250 MG tablet benzonatate (Tessalon Perles) 100 MG capsule 2. YOMAIRA (secretory otitis media), right methylPREDNISolone (MEDROL DOSEPACK) 4 mg tablet loratadine-pseudoePHEDrine (Claritin-D 12 Hour) 5-120 mg Tb12 No follow-ups on file. ADDITIONAL CLINICAL COMMENTS No notes on file ORDERS PLACED THIS VISIT No orders of the defined types were placed in this encounter. MEDICATION LIST AT END OF VISIT Current Outpatient Medications Medication Sig Dispense Refill azithromycin (Zithromax) 250 MG tablet Take 2 tablets (500 mg) on Day 1, followed by 1 tablet (250 mg) once daily on Days 2 through 5. . 6 tablet 0 benzonatate (Tessalon Perles) 100 MG capsule Take 1 (one) capsule (100 mg total) by mouth every 6 (six) hours as needed for cough (cough) . 30 capsule 1 loratadine-pseudoePHEDrine (Claritin-D 12 Hour) 5-120 mg Tb12 Take 1 (one) tablet by mouth 2 (two) times a day for 10 days . 20 tablet 2 methylPREDNISolone (MEDROL DOSEPACK) 4 mg tablet follow package directions . 21 tablet 0 No current facility-administered medications for this visit. documented in this encounterLaioHealthEvaluation note* Diagnosis Bronchitis- Primary Bronchitis, not specified as acute or chronic YOMAIRA (secretory otitis media), right [facility] Diagnosis History of delivery- Primary Postoperative pain Other acute postoperative pain care following delivery documented in this encounter [facility] note* Diagnosis Mass of right breast, unspecified quadrant Mass of breast, unspecified laterality documented in [facility] noteNo assessment information availableEast [facility] Work Phone: Evaluation note* Diagnosis DUB (dysfunctional uterine bleeding)- Primary Other disorder of menstruation and other abnormal bleeding from female genital tract [facility]* Diagnosis Left lower quadrant abdominal pain- Primary [facility] Diagnosis Masses of both breasts- Primary Fibroadenoma of both breasts documented in this encounter [facility]* Attachments The following attachments cannot be sent through Care Everywhere. * Section: Post-op (American) documented in this encounterOhioHealthInstructionsNot on filedocumented in this encounter[facility] SystemReason for referral (narrative)No reason for referral information availableWadsworth-[facility]man [facility] Work Phone: Summary Purpose Family History No Family History Records FoundNo Family History Records FoundNo Family History Records FoundNo Family History Records FoundNo Family History Records FoundNo Family History Records FoundNo Family History Records FoundNo Family History Records FoundNo Family History Records Found Advance Directives No Advanced Directives Records FoundDocuments on File Type Date 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 Advance Directives and Living Will Latest Code Status on File Date Activated Date Inactivated Comments 01/21/2022 6:17 PM 01/23/2022 1:26 PM Full Code Date Activated Date Inactivated Comments 01/21/2022 1:51 PM 01/21/2022 5:38 PM Full Code Date Activated Date Inactivated Comments 01/12/2022 3:39 PM 01/12/2022 6:03 PM Advance Directive Response Recorded Date/ Time Advance Directives No February 19, 2024 2:17pm Reason for Referral Specialty Diagnoses / Procedures Referred By Contac t Referred To Contact Radiology Diagnoses Mass of right breast, unspecified quadrant Mass of breast, unspecified laterality Procedures US Breast Limited Right Cayla Tubbs, DO [address] [address] [facility] Referral ID Status Reason Start Date Expiration Date V isits Requested Visits Authorized [id number] Authorized 10/13/2022 1 1 Chief Complaint and Reason for Visit Chief Complaint sore throat, ear karol n Chief Complaint Admit Date n63.15 N63.25 October 28, 2024 9:09 am Abnormal Mammogram N63.23 N63.13 October 282024 12:23pm N63.13 N63.23 October 30, 2024 12:4 1pm Reason for Visit Admit Date Breast mass, left October 28, 2024 12:2 3pm Breast mass, right October 28, 2024 12:2 3pm Breast mass, left October 30, 2024 12:4 1pm Breast mass, right October 30, 2024 12:4 1pm Additional Source Comments INFORMATION SOURCE (unrecogn ized section and content) DATE CREATED AUTHOR 07/21/2020 [facility] DATE CREATED AUTHOR AUTHOR'S ORGANIZ ATION 09/21/2020 [facility] DATE CREATED AUTHOR AUTHOR'S ORGANIZ ATION 02/01/2021 [facility] DATE CREATED AUTHOR AUTHOR'S ORGANIZ ATION 11/24/2021 [facility] DATE CREATED AUTHOR AUTHOR'S ORGANIZ ATION 06/26/2022 [facility] DATE CREATED AUTHOR AUTHOR'S ORGANIZ ATION 04/28/2023 [facility] DATE CREATED AUTHOR AUTHOR'S ORGANIZ ATION 02/06/2024 [facility] DATE CREATED AUTHOR AUTHOR'S ORGANIZ ATION 11/08/2024 [facility] DATE CREATED AUTHOR AUTHOR'S ORGANIZ ATION 12/04/2024 [facility] Reason for Visit (unrecogniz ed section and content) Reason Comments Cough right ear fullness x 1 week, itching, irritated, drainage &cough yesterday. Reason Comments Med Refill Reason Comments Pelvic Pain Pt states continuous pelvic pain and lower abd. Pain. Pt. States DFM as well, Pt uncomfortable. Denies LOF or vaginal bleeding. Specialty Diagnoses / Procedures Referred By Brant t Referred To Contact Diagnoses History of delivery REPEAT SELAM 02-13-22 [place] AT Procedures SECTION Referral ID Status Reason Start Date Expiration Date Visits Re quested Visits Authorized [id number] 1 1 Specialty Diagnoses / Procedures Referred By Brant t Referred To Contact Radiology Diagnoses Mass of right breast, unspecified quadrant Mass of breast, unspecified laterality Procedures US Breast Limited Right Cayla Tubbs, DO [address] [facility] [address] [address] [facility] [place] Referral ID Status Reason Start Date Expiration Date V isits Requested Visits Authorized [id number] Authorized 10/13/2022 1 1 Reason Comments Irregular bleeding Reason Comments Abnormal Bleeding Reason Comments Right breast bx results Breast clinic pt . Ordered Prescriptions (unrec ognized section and content) Prescription Sig Dispensed Refills Start Date End Da te FLUoxetine (PROzac) 20 mg capsule TAKE 1 CAPSULE BY MOUTH EVERY DAY 90 capsule 1 07/09/2021 Care Teams (unrecognized sec tion and content) Rubber Tester Relationship Specialty Start Date End Date Magen Mao MD [address] [place] [id number] PCP - General Cardiology 12/24/19 Rubber Tester Relationship Specialty Start Date End Date No, Physician [facility] PCP - General 11/30/20 Rubber Tester Relationship Specialty Start Date End Date Cayla Tubbs, DO [address] [place] [address] PCP - General Obstetrics and Gynecology 10/25/22 Team Status: Active Member Role Status Dates Efrain Muñoz DO Primary Care Provider Active Team Status: Inactive Member Role Status Dates Efrain Muñoz DO Primary Care Provide r, Attending Provider Active Start: February 20, 2024 End: February 20, 2024 Rubber Tester Relationship Specialty Start Date End Date Efrain Muñoz DO [address] [place] [phone] PCP - General Internal Medicine 10/22/24 Rubber Tester Relationship Specialty Start Date End Date Efrain Muñoz DO [address] [place] [address] PCP - General Internal Medicine 10/22/24 Team Status: Inactive Member Role Status Dates Efrain Muñoz DO Primary Care Provider Active Start: October 28, 2024 End: October 28, 2024 Patricia Segura PA-C Attending Provider Active Sta rt: October 28, 2024 End: October 28, 2024 Team Status: Inactive Member Role Status Dates Efrain Muñoz DO Primary Care Provider Active Start: October 28, 2024 End: October 28, 2024 Fernie Rizzo DO Attending Provider Active Start: October 28, 2024 End: October 28, 2024 Team Status: Inactive Member Role Status Dates Efrain Muñoz DO Primary Care Provider Active Start: October 30, 2024 End: October 30, 2024 Fernie Rizzo DO Attending Provider Active Start: October 30, 2024 End: October 30, 2024 Rubber Tester Relationship Specialty Start Date End Date Efrain Muñoz DO [address] [place] [id number] PCP - General Internal Medicine 10/22/24 Scheduled Active and Recently Administ ered Medications (unrecognized section and content) Medication Order 01/21/2022 01/22/2022 01/23/2022 ceFAZolin (ANCEF) IVPB 2 g (premix) (COMPLETED) 2,000 mg, Intravenous, at 100 mL/hr, Once, On Mon01/21/22 at 1445, For 1 dose, Labor & Delivery, Administer within 1 hour prior to incision., Indication: Other (specify), Indication: Pre Section 1418 (New Bag - Provider: Josse Orozco RN)1445 (Given - Provider: Isabelle Gracia)1500 (Stopped - Provider: Isabelle Gracia) citric acid-sodium citrate (BICITRA) solution 30 mL (COMPLETED) 30 mL, Oral, Once, On Mon01/21/22 at 1445, For 1 dose, Labor & Delivery, One hour prior to surgery. 1410 (Given - Provider: Josse Orozco RN) docusate sodium (COLACE) capsule 100 mg 100 mg, Oral, 2 times daily, First dose on Mon01/21/22 at 2100, , Use oral medication first for constipation. Use rectal suppository, if ordered, for constipation if oral route not tolerated. DO NOT CRUSH OR CHEW. 2039 (Given - Provider: Jeanna Goins RN) 101 (Given - Provider: Angelika Marie RN)221 (Given - Provider: Jeanna Goins, [place]) 0900 (Due) ketorolac (TORADOL) injection 30 mg (COMPLETED) 30 mg, Intravenous, Every 6 hours, First dose on Mon01/21/22 at 2100, For 2 doses, Sign and Release, Start 6 hours after dose given in OR. Give every 6 hours x 2 doses post-procedure. 2038 (Given - Provider: Jeanna Goins RN) 035 (Given - Provider: Jeanna Goins RN) ondansetron (ZOFRAN-ODT) disintegrating tablet 4 mg (COMPLETED) 4 mg, Oral, Once, On Mon01/21/22 at 1445, For 1 dose, Labor & Delivery, Orally disintegrating tablet: Open blister pack and place tablet on the tongue; tablet is formulated to dissolve on the tongue without water; do not split tablet. Formulation requires tablet remain in sealed package until immediately prior to dose being administered. 1410 (Given - Provider: Josse Orozco RN) Continuous Medication Order 01/21/2022 01/22/2022 01/23/2022 lactated Ringers infusion 125 mL/hr, Intravenous, Continuous, Starting on Mon01/21/22 at 1915, L&D Post-Delivery, Initiate when oxytocin drip is discontinued. Discontinue after 24 hours if afebrile and tolerating PO. 1914 (Due) lactated Ringers infusion 125 mL/hr, Intravenous, Continuous, Starting on Mon01/21/22 at 1915, L&D Post-Delivery, Start when oxyTOCIN (PITOCIN) drip is discontinued. Discontinue after 24 hours if patient is afebrile and tolerating orals. 1914 (Due) oxytocin in lactated ringers (PITOCIN) 20 unit/1,000 mL infusion (CANCELED) Intravenous, at 124.8 mL/hr, Continuous, Starting on Mon01/21/22 at 1445, For 24 hours, Labor & Delivery, Discontinue infusion after 3.5 Hours AND when bleeding scant and fundus firm CATEGORY B HAZARDOUS DRUG use safe handling precautions. Use reference link to view PPE guidelines. Safe handling precautions only required when in the third trimester. EMERGENCY Haz Drug use professional judgement when deviating from standard handling precautions., Initial Rate (darshana-units/min): 41.6 darshana-units/min 1555 (New Bag - Provider: Josse Orozco RN) 0846 (Stopped - Provider: Angelika Marie RN) oxytocin in lactated ringers (PITOCIN) 20 unit/1,000 mL infusion () Intravenous, at 124.8 mL/hr, Continuous, Starting on Mon01/21/22 at 1915, For 24 hours, L&D Post-Delivery, Discontinue infusion after 3.5 hours AND when bleeding scant and fundus firm. Then begin LR infusion at 125 ml/hr CATEGORY B HAZARDOUS DRUG use safe handling precautions. Use reference link to view PPE guidelines. Safe handling precautions only required when in the third trimester. EMERGENCY Haz Drug use professional judgement when deviating from standard handling precautions., Initial Rate (darshana-units/min): 41.6 darshana-units/min 1818 (Associate Post- Pitocin - Provider: Jeanna Goins, RN) PRN Medication Order 01/21/2022 01/22/2022 01/23/2022 acetaminophen (TYLENOL) tablet 650 mg 650 mg, Oral, Every 4 hours PRN, mild pain, Starting on Mon01/21/22 at 1817, 1010 (Given - Provider: Angelika Marie RN)1344 (Given - Provider: Angelika Marie RN)1753 (Given - Provider: Donna Chavira RN)2216 (Given - Provider: Jeanna Goins, [place]) aluminum-magnesium hydroxide-simethicone (MAALOX PLUS) 200-200-20 mg/5 mL suspension 30 mL 30 mL, Oral, Every 4 hours PRN, indigestion, Starting on Mon01/21/22 at 1817, bisacodyL (DULCOLAX) suppository 10 mg 10 mg, Rectal, Daily PRN, constipation, Starting on Mon01/21/22 at 1817, , Use oral medication first for constipation. Use rectal suppository, if ordered, for constipation if oral route not tolerated. diphenhydrAMINE (BENADRYL) injection 25 mg(Linked Group 1) 25 mg, Intravenous, Every 6 hours PRN, itching, Starting on Mon01/21/22 at 1817, , Use oral route first, if tolerated. For IV administration, give at a rate less than or equal to 25 mg/min diphenhydrAMINE (BENADRYL) tablet 25 mg(Linked Group 1) 25 mg, Oral, Every 6 hours PRN, itching, Starting on Mon01/21/22 at 1817, , Use oral route first, if tolerated. diptheria, tetanus toxoid, acellular pertussis (ADACEL/Tdap) injection 0.5 mL 0.5 mL, Intramuscular, Prior To Discharge, Based on vaccine assessment, Starting on Mon01/21/22 at 1817, For 1 dose, , If not previously vaccinated for pertussis. Complete Vaccine Assessments. If indicated, administer prior to discharge. Provide CDC vaccine information sheet(s) (VIS) for patient for vaccines administered. HYDROmorphone (DILAUDID) injection 0.5 mg 0.5 mg, Intravenous, Once as needed, Pain Associated with Hemorrhage Management., Starting on Mon01/21/22 at 1817, For 1 dose, ibuprofen (ADVIL,MOTRIN) tablet 600 mg 600 mg, Oral, Every 6 hours PRN, headaches, swelling / inflamation, Starting on Mon01/22/22 at 1200, , Give with food. Do not give with ketorolac (TORADOL). If following ketorolac (TORADOL) therapy, start at least 6 hours after ketorolac. Do Not Crush or Chew if administering orally due to bitter taste. May be crushed if given via tube. 1343 (Given - Provider: Angelika Marie, RN)2215 (Given - Provider: Jeanna Goins RN) lactated ringers bolus 2,000 mL (COMPLETED) 2,000 mL, Intravenous, Administer over 61 Minutes, Once as needed, IF patient is a candidate for Spinal anesthesia, Starting on Mon01/21/22 at 1350, For 1 dose, Labor & Delivery, Infuse prior to initiation of Spinal anesthesia. 1351 (Given - Provider: Josse Orozco RN) measles, mumps and rubella vaccine (MMR) 1,000-12,500 TCID50/0.5 mL injection 0.5 mL 0.5 mL, Subcutaneous, Prior To Discharge, administer vaccine prior to discharge, Based on vaccine assessment, Starting on Mon01/21/22 at 1817, For 1 dose, , If indicated and not previously vaccinated. Complete Vaccine Assessments. If indicated, administer prior to discharge. Provide CDC vaccine information sheet(s) (VIS) for patient for vaccines administered. naloxone (NARCAN) injection 0.1 mg(Linked Group 2) 0.1 mg, Intravenous, As needed, opioid reversal, For respiratory rate less than or equal to 8 per minute., Starting on Mon01/21/22 at 1817, , Mix nalOXone (NARCAN) 0.4 mg (1mL) with 9 mL of Normal Saline to total 10 mL. Administer 0.1 mg (2.5mL) IV Push every 2 minutes until respiratory rate is 10 or greater. naloxone (NARCAN) injection 0.4 mg(Linked Group 2) 0.4 mg, Intravenous, As needed, opioid reversal, patient is pulseless, breathless, and unresponsive, Starting on Mon01/21/22 at 1817, , Call a code first, then administer naloxone dose undiluted IV Push over 30 seconds. ondansetron (ZOFRAN) injection 4 mg(Linked Group 3) 4 mg, Intravenous, Every 6 hours PRN, nausea, vomiting, Starting on Mon01/21/22 at 1817, , Use oral route first, if tolerated. ondansetron (ZOFRAN-ODT) disintegrating tablet 4 mg(Linked Group 3) 4 mg, Oral, Every 6 hours PRN, nausea, vomiting, Starting on Mon01/21/22 at 1817, , Use oral route first, if tolerated. Formulation requires tablet remain in sealed package until immediately prior to dose being administered. oxyCODONE (ROXICODONE) immediate release tablet 5-10 mg 5-10 mg, Oral, Every 4 hours PRN, moderate to severe pain, Starting on Mon01/21/22 at 1817, , [] Initiate with 5 mg oral every 4 hours prn moderate to severe pain. [] For unrelieved pain, may repeat 5 mg oral dose within 60 minutes of initial dose. [] If pain is RELIEVED after repeat dose, change to 10 mg oral every 4 hours prn moderate to severe pain. [] If pain is UNrelieved after repeat dose, or patient requires dose reduction, call physician. rho(d) immune globulin (RHOPHYLAC) injection 300 mcg(Linked Group 4) 300 mcg, Intramuscular, Once as needed, IF patient is Rh Negative - administer if indicated (per lab), Starting on Mon01/21/22 at 1817, For 1 dose, , Use IV route, if available. rho(d) immune globulin (RHOPHYLAC) injection 300 mcg(Linked Group 4) 300 mcg, Intravenous, Once as needed, IF patient is Rh Negative - administer if indicated (per lab), Starting on Mon01/21/22 at 1817, For 1 dose, , Use IV route, if available. Do not give with other IV medications. simethicone (MYLICON) chewable tablet 80 mg 80 mg, Oral, After meals as needed, flatulence, Starting on Mon01/21/22 at 1817, sodium chloride 0.9% (NS) 0-150 mL/hr, Intravenous, As needed, To flush line after IV infusions when no maintenance IV ordered or a compatibility issue. Infuse 20mL at the same rate as the secondary infusion, Starting on Mon01/21/22 at 1817, L&D Post-Delivery, Run as Primary IV. NOT intended for KVO. varicella virus vacc live (PF) (VARIVAX) injection 0.5 mL 0.5 mL, Subcutaneous, Prior To Discharge, administer vaccine prior to discharge, Based on vaccine assessment, Starting on Mon01/21/22 at 1817, For 1 dose, , If not previously vaccinated. Complete Vaccine Assessments. If indicated, administer prior to discharge. Provide [facility] vaccine information sheet(s) (VIS) for patient for vaccines administered. Linked Groups Order Group 1: diphenhydrAMINE (BENADRYL) tablet 25 mgJump to med 25 mg, Oral, Every 6 hours PRN, itching, Starting on Mon01/21/22 at 1817,
Use oral route first, if tolerated.
Or diphenhydrAMINE (BENADRYL) injection 25 mgJump to med 25 mg, Intravenous, Every 6 hours PRN, itching, Starting on Mon01/21/22 at 1817,
Use oral route first, if tolerated. For IV administration, give at a rate less than or equal to 25 mg/min
Group 2: naloxone (NARCAN) injection 0.1 mgJump to med 0.1 mg, Intravenous, As needed, opioid reversal, For respiratory rate less than or equal to 8 per minute., Starting on Mon01/21/22 at 1817,
Mix nalOXone (NARCAN) 0.4 mg (1mL) with 9 mL of Normal Saline to total 10 mL. Administer 0.1 mg (2.5mL) IV Push every 2 minutes until respiratory rate is 10 or greater.
And Notify physician (CANCELED) STAT, Until discontinued, Starting on Mon01/21/22 at 1818, Until Specified
Respiratory rate less than: 8
For respiratory rate less than or equal to 8, notify physician and/or appropriate staff for additional orders., And naloxone (NARCAN) injection 0.4 mgJump to med 0.4 mg, Intravenous, As needed, opioid reversal, patient is pulseless, breathless, and unresponsive, Starting on Mon01/21/22 at 1817,
Call a code first, then administer naloxone dose undiluted IV Push over 30 seconds.
Group 3: ondansetron (ZOFRAN-ODT) disintegrating tablet 4 mgJump to med 4 mg, Oral, Every 6 hours PRN, nausea, vomiting, Starting on Mon01/21/22 at 1817,
Use oral route first, if tolerated. Formulation requires tablet remain in sealed package until immediately prior to dose being administered.
Or ondansetron (ZOFRAN) injection 4 mgJump to med 4 mg, Intravenous, Every 6 hours PRN, nausea, vomiting, Starting on Mon01/21/22 at 1817,
Use oral route first, if tolerated.
Group 4: rho(d) immune globulin (RHOPHYLAC) injection 300 mcgJump to med 300 mcg, Intramuscular, Once as needed, IF patient is Rh Negative - administer if indicated (per lab), Starting on Mon01/21/22 at 1817, For 1 dose,
Use IV route, if available.
Or rho(d) immune globulin (RHOPHYLAC) injection 300 mcgJump to med 300 mcg, Intravenous, Once as needed, IF patient is Rh Negative - administer if indicated (per lab), Starting on Mon01/21/22 at 1817, For 1 dose,
Use IV route, if available. Do not give with other IV medications.
Goals (unrecognized section and content) Goals may be documented in a n alternate sectionNot on filedocumented as of this encounterNot on filedocumented as of this encounterGoals may be documented in an alternate section FOR RECORDS PERTAINING TO PATIENTS WHO ARE OR HAVE BEEN ENROLLED IN A CHEMICAL DEPENDENCY/SUBSTANCEABUSE PROGRAM, SOME INFORMATION MAY BE OMITTED. This clinical summary was aggregated from multiple sources. Caution should be exercised in using it in the provision of clinical care. This summary normalizes information from multiple sources, and as a consequence, information in this document may materially change the coding, format and clinical context of patient data. In addition, data may be omitted in some cases. CLINICAL DECISIONS SHOULD BE BASED ON THE PRIMARY CLINICAL RECORDS. [facility] [employer] [facility]. provides no warranty or guarantee of the accuracy or completeness of information in this document.
--- NOTE | 2025-01-03 21:52 | ED_ITS ---
HPI - Female Genitourinary General Chief complaint: Urogenital-Female Stated complaint: BLADDER PAIN DIZZY Time Seen by Provider: 01/03/25 21:49 Source: patient Mode of arrival: walk-in Limitations: no limitations History of Present Illness HPI Narrative: presents complaining of painful urination that started today. Some nausea the past week. No fever or chills. mild back pain. also suprapubic pain. Past history of UTI Related Data Home Medications ?Medication ?Instructions ?Recorded ?Confirmed drospirenone 3 mg-ethinyl 1 tab PO DAILY 11/13/2312/07 estradiol 0.03 mg tablet escitalopram oxalate 20 mg tablet 20 mg PO DAILY 11/1211/13/23 Allergies Allergy/AdvReac Type Severity Reaction Status Date / Time No Known Drug Allergies Allergy Verified 01/03/25 21:27 PFSH PFSH Social History Little interest or pleasure in doing things: not at all Feeling down, depressed, or hopeless: not at all Exam Constitutional Vital Signs, click to edit/add: Last Vital Signs Temp 98 F 01/03/25 21:22 Pulse 89 01/03/25 21:22 Resp 16 01/03/25 21:22 BP 122/75 01/03/25 21:22 Pulse Ox 100 01/03/25 21:22 O2 Del Method Room Air 01/03/25 21:22 Common normals: no apparent distress, average body habitus, oriented x3, no limitations, healthy appearing, alert and well nourished [facility] Common normals: normocephalic and head/scalp atraumatic Eye Common normals: PERRL, EOMs intact bilaterally and conjunctivae normal Respiratory Common normals: normal respiratory effort, no retractions, no use of accessory muscles and clear to auscultation bilaterally Cardio Common normals: regular rate, regular rhythm, S1 normal heart sound and S2 normal heart sound GI Common normals: Normal to inspection, nondistended, normoactive bowel sounds present and soft to palpation Other: mild suprapubic tenderness Extremity Common normals: normal to inspection and full ROM Neuro Common normals: oriented x3, CN's II-XII intact bilaterally, moves all extremities and no focal motor deficits Psych Appearance: grossly normal Course Vital Signs Vital signs: Vital Signs Temperature 98 F 01/03/25 21:22 Pulse Rate 89 01/03/25 21:22 Respiratory Rate 16 01/03/25 21:22 Blood Pressure 122/75 01/03/25 21:22 Pulse Oximetry 100 01/03/25 21:22 Oxygen Delivery Method Room Air 01/03/25 21:22 Temperature 98 F 01/03/25 21:22 Pulse Rate 89 01/03/25 21:22 Respiratory Rate 16 01/03/25 21:22 Blood Pressure 122/75 01/03/25 21:22 Pulse Oximetry 100 01/03/25 21:22 Oxygen Delivery Method Room Air 01/03/25 21:22 MDM - Female Genitourinary MDM Narrative Medical decision making narrative: presents with dysuria. No fever or chills . mild elevated WBC. UA +. patient treated with rocephin in the department and discharged home with a prescription for Bactrim ds and Pyridium Lab Data Labs: Lab Results 01/03/25 01/03/25 Range/Units 21:35 22:07 WBC 13.5 H (4.0-11.0) 10^3/uL RBC 4.24 (4.20-5.40) 10^6/uL Hgb 12.1 (12.0-16.0) g/dL Hct 36.3 (36.0-48.0) % MCV 85.6 (81.0-99.0) fL MCH 28.5 (26.7-34.0) pg MCHC 33.3 (29.9-35.2) g/dL RDW 12.3 (11.0-15.0) % Plt Count 293 (150-450) 10^3/uL MPV 10.3 (9.5-13.5) fL Neut % (Auto) 73.4 (43.0-75.0) % Lymph % (Auto) 17.7 L (20.5-60.0) % [place] % (Auto) 6.9 (1.7-12.0) % Eos % (Auto) 1.3 (0.9-7.0) % Baso % (Auto) 0.3 (0.2-2.0) % Neut # (Auto) 10.0 H (1.4-6.5) 10^3/uL Lymph # (Auto) 2.4 (1.2-3.8) 10^3/uL [place] # (Auto) 0.9 H (0.3-0.8) 10^3/uL Eos # (Auto) 0.2 (0.0-0.7) 10^3/uL Baso # (Auto) 0.0 (0.0-0.1) 10^3/uL Abs Immat Gran (auto) 0.05 H (0.00-0.03) 10^3/uL Imm/Tot Granulo (auto) 0.4 (0.0-0.5) % Sodium 141 (136-145) mmol/L Potassium 3.6 (3.5-5.1) mmol/L Chloride 104 (98-107) mmol/L Carbon Dioxide 25.8 (21.0-32.0) mmol/L Anion Gap 14.8 BUN 12.0 (7.0-18.0) mg/dL Creatinine 0.80 (0.55-1.02) mg/dL Est GFR ( Amer) >60 (>=60 mL/min/1.73m^2) Est GFR (Non-Af Amer) >60 (>=60 mL/min/1.73m^2) BUN/Creatinine Ratio 15.0 Glucose 97 (74-106) mg/dL Lactate 1.0 (0.4-2.0) mmol/L Calcium 8.4 L (8.5-10.1) mg/dL Urine Color Lt. yellow (YELLOW) Urine Clarity Slightly cloudy A (CLEAR) Urine pH 6.0 (5.0-9.0) Ur Specific [place] 1.025 (1.005-1.025) Urine Protein 100 A (NEG/TRACE) mg/dL Urine Glucose (UA) Negative (NEGATIVE) mg/dL Urine Ketones Negative (NEGATIVE) mg/dL Urine Occult Blood Large A (NEGATIVE) Urine Nitrite Negative (NEGATIVE) Urine Bilirubin Negative (NEGATIVE) Urine Urobilinogen 1.0 (0.2-1.0) EU/dL Ur Leukocyte Esterase Small A (NEGATIVE) Urine RBC 50-75 A (0-2) #/HPF Urine WBC 75-100 A (NONE SEEN) #/HPF Ur Squamous Epith Cells Few A (NONE/RARE) #/LPF Urine Crystals None seen (None Seen) #/HPF Urine Bacteria Small A (NONE SEEN) #/HPF Urine Casts None seen (NONE SEEN) #/LPF Urine Mucus Moderate A (NONE SEEN) Ur [place] [place] Dis[place] Chief Complaint: Urogenital-Female Clinical Impression: UTI (urinary tract infection) Patient Disposition: Home, Self-Care Prescriptions / Home Meds: No Action drospirenone-ethinyl estradiol 3-0.03 mg tablet 1 tab PO DAILY escitalopram oxalate 20 mg tablet 20 mg PO DAILY Print Language: Lithuanian Instructions: Urinary Tract Infection in Women (ED) Additional Instructions: follow up with your doctor next week for recheck Referrals: Efrain Muñoz DO [Primary Care Provider, Internal Medicine] - 1 week
[2025-01-03 22:11] LABS: Glucose Urine UA NEGATIVE (NEGATIVE)
[2025-01-03 22:18] LABS: Cast Seen? NONE SEEN #/LPF (NONE SEEN); Crystals Seen? None Seen #/HPF (None Seen); Urine Culture Indicated YES-FRMC
[2025-01-03 22:22] LABS: Hematocrit 36.3 % (36.0-48.0); Hemoglobin 12.1 g/dL (12.0-16.0); Immature Granulocytes Abs Auto 0.05 10^3/uL (0.00-0.03); Immature Granulocytes Pct Auto 0.4 % (0.0-0.5); Lymphocytes Absolute Auto 2.4 10^3/uL (1.2-3.8); Mean Corpuscular HGB Conc 33.3 g/dL (29.9-35.2); Mean Corpuscular Hemoglobin 28.5 pg (26.7-34.0); Mean Corpuscular Volume 85.6 fL (81.0-99.0); Platelet Count 293 10^3/uL (150-450); Red Blood Count 4.24 10^6/uL (4.20-5.40); White Blood Count 13.5 10^3/uL (4.0-11.0)
[2025-01-03] MEDS: 0.9 % SODIUM CHLORIDE 1,000 ML 999 ML IV (22:25)
[2025-01-03 22:31] LABS: Anion Gap 14.8; Blood Urea Nitrogen 12.0 mg/dL (7.0-18.0); Calcium 8.4 mg/dL (8.5-10.1); Carbon Dioxide 25.8 mmol/L (21.0-32.0); Chloride 104 mmol/L (98-107); Estimated GFR (African America >60 (>=60 mL/min/1.73m^2); Estimated GFR (Non-African Ame >60 (>=60 mL/min/1.73m^2); Glucose 97 mg/dL (74-106); Potassium 3.6 mmol/L (3.5-5.1); Sodium 141 mmol/L (136-145)
[2025-01-03 22:39] LABS: Lactate/Lactic Acid 1.0 mmol/L (0.4-2.0)
[2025-01-03] MEDS: PHENAZOPYRIDINE 100 MG TABLET PO (23:21)
[2025-01-04 00:18] VITALS: BP 107/85; PULSE 82; O2SAT 95
== END 2025-01-04 00:20 | disposition home or self-care (01) ==
PROVIDERS: Emergency Provider Internal Medicine; PCP Internal Medicine
DX: N39.0 Urinary tract infection, site not specified (principal); Z87.440 Personal history of urinary (tract) infections
CPT/HCPCS: 36415; 80048; 81001; 83605; 85025; 87086; 87088; 87186; 96365; 99285; J0696